=== PATIENT | female | born 1975 | race African-American/Black ===

== ENCOUNTER 2016-06-23 13:07 | Emergency (ER) | payer OTHER ==
[~2016-06-23] VITALS: Wt 60.0 kg
[2016-06-23 16:09] LABS: URINE BLOOD (Dip) POC Negative (NEGATIVE)
[2016-06-23] MEDS ORDERED: PHEN-537 PO (17:07)
[2016-06-23] MEDS ORDERED: NITR-58 PO (17:07)
[2016-06-23] MEDS ORDERED: [UNRECOGNIZED DRUG - CODE] TP (17:22)
--- NOTE | 2016-06-23 17:36 | ERD ---
ER Documentation Chief Complaint Date/Time DATE: 06/23/16 TIME: 17:31 Chief Complaint intermittent dysuria for months with period of scalp itching HPI This is a 41-year-old female presenting to the emergency department complaining of on and off painful urination for the past few days. She denies any fevers, pelvic pain, hematuria, flank pain. Patient also states that she has had intermittent itchiness of the scalp that comes and goes, she states she feels like parasites come out and when they get angry they attack her ROS All systems reviewed and are negative except as per history of present illness. Medications Home Meds Active Scripts Piperonyl Butoxide Technical (Lice Killing Shampoo) 118 Ml Shampoo, 118 ML TP ONCE, #1 Prov:HAL GUERRERO PA-C 06/23/16 Phenazopyridine Hcl* (Pyridium*) 100 Mg Tab, 100 MG PO TID Y for URINARY PAIN, # 8 TAB Prov:HAL GUERRERO PA-C 06/23/16 Nitrofurantoin Monohyd Macrocr* (Macrobid*) 100 Mg Capsr, 100 MG PO BID for 7 Days, CAP Prov:HAL GUERRERO PA-C 06/23/16 Reported Medications [None] No Conflict Check 10/06/12 Allergies Allergies: Coded Allergies: No Known Allergy (Unverified , 05/09/12) PMhx/Soc History of Surgery: Yes (left elbow sx, left breast mass,cervical CA) Anesthesia Reaction: No Hx Neurological Disorder: No Hx Respiratory Disorders: No Hx Cardiac Disorders: No (WPW) Hx Psychiatric Problems: No Hx Miscellaneous Medical Probl: No Hx Alcohol Use: No Hx Substance Use: No Hx Tobacco Use: Yes Smoking Status: Current every day smoker Physical Exam Vitals Vital Signs Date Time Temp Pulse Resp B/P Pulse Ox O2 Delivery O2 Flow Rate FiO2 06/23/16 13:24 98.8 100 21 103/66 100 Physical Exam General: well-developed/well-nourished, in no apparent distress, non-toxic appearing HENT: NC/AT Eyes: Conjunctiva normal Neck: Supple Pulm: CTA bilaterally, normal breathing CV: Normal S1S2 GI: Soft, non-distended, normal bowel sounds, mild TTP on suprapubic region Back: No midline tenderness, no masses, No CVAT Ext: No clubbing, cyanosis, or edema Neuro: Alert and orientated Skin: intact, normal turgor Psych: Normal mood and mentation Results 24 hrs Laboratory Tests Test 06/23/16 16:08 Bedside Urine pH (LAB) 7.0 Bedside Urine Protein (LAB) Negative Bedside Urine Glucose (UA) Negative Bedside Urine Ketones (LAB) Negative Bedside Urine Blood Negative Bedside Urine Nitrite (LAB) Positive Bedside Urine Leukocyte Esterase (L 1+ Procedures/MDM This is a 41-year-old female presenting to the emergency room complaining of symptoms of dysuria which is likely due to urinary tract infection. A urine dipstick was done in the ED and showed positive nitrite and leukocyte esterase. Patient was given prescription for Macrobid. I have a low suspicion for nephrolithiasis, para pyelonephritis. Patient appears well with stable vital signs. In addition patient states that she feels as if she has parasites on her scalp that come and go for the past few months and they attack or when he gets angry. On examination I have not seen any evidence of any lice, lesions or signs of excoriations. A prescription for pediculosis was provided. Discussed with her to return to the ER for any worsening signs or symptoms otherwise follow-up with the primary care physician. Patient understands and agrees with plan Departure Diagnosis: Primary Impression: UTI (urinary tract infection) Condition: Stable Patient Instructions: Understanding Urinary Tract Infections (UTIs) Additional Instructions: FOLLOW UP WITH YOUR PRIMARY CARE PHYSICIAN TOMORROW.Return to this facility if you are not improving as expected. Take all medicines as directed. Return to this facility if you are not improving as expected. HAL GUERRERO PA-C Jun 23, 2016 17:35
== END 2016-06-23 17:25 | disposition left against medical advice (07) ==
LOC: FTE 13:07
DX: N39.0 Urinary tract infection, site not specified (principal); F17.210 Nicotine dependence, cigarettes, uncomplicated; Z85.41 Personal history of malignant neoplasm of cervix uteri
CPT/HCPCS: 81003; 87591; 99283

== ENCOUNTER 2017-01-20 16:37 | Emergency (ER) | payer OTHER ==
[~2017-01-20] VITALS: Ht 170.2 cm; Wt 52.5 kg
[~2017-01-20 16:37] MED LIST: NITR-58 PO; PHEN-537 PO; [UNRECOGNIZED DRUG - CODE] TP
[2017-01-20 16:40] VITALS: Ht 170.2 cm; Wt 52.5 kg
--- NOTE | 2017-01-20 19:50 | ERD ---
ER Documentation Chief Complaint Chief Complaint back pain x 4 months, frequent hx uti HPI This 41-year-old female reports left sided flank pain, and pelvic pain, pt reports that she is living on the streets, has frequent UTI ROS All systems reviewed and are negative except as per history of present illness. Medications Home Meds Active Scripts Piperonyl Butoxide Technical (Lice Killing Shampoo) 118 Ml Shampoo, 118 ML TP ONCE, #1 Prov:HAL GUERRERO PA-C 06/23/16 Phenazopyridine Hcl* (Pyridium*) 100 Mg Tab, 100 MG PO TID Y for URINARY PAIN, # 8 TAB Prov:HAL GUERRERO PA-C 06/23/16 Nitrofurantoin Monohyd Macrocr* (Macrobid*) 100 Mg Capsr, 100 MG PO BID for 7 Days, CAP Prov:HAL GUERRERO PA-C 06/23/16 Reported Medications [None] No Conflict Check 10/06/12 Allergies Allergies: Coded Allergies: No Known Allergy (Unverified , 05/09/12) PMhx/Soc History of Surgery: Yes (left elbow sx, left breast mass,cervical CA) Anesthesia Reaction: No Hx Neurological Disorder: No Hx Respiratory Disorders: No Hx Cardiac Disorders: No (WPW) Hx Psychiatric Problems: No Hx Miscellaneous Medical Probl: Yes (chronic uti) Hx Alcohol Use: No Hx Substance Use: No Hx Tobacco Use: Yes Smoking Status: Current every day smoker Physical Exam Vitals Vital Signs Date Time Temp Pulse Resp B/P Pulse Ox O2 Delivery O2 Flow Rate FiO2 01/20/17 16:40 98.6 94 18 113/65 99 Vitals stable, triage notes reviewed Physical Exam Const: [] Head: Atraumatic Eyes: Normal Conjunctiva ENT: Normal External Ears, Nose and Mouth. Neck: Full range of motion..~ No meningismus. Resp: Clear to auscultation bilaterally Cardio: Regular rate and rhythm, no murmurs Abd: Soft, non tender, non distended. Normal bowel sounds Skin: No petechiae or rashes Back: No midline or flank tenderness Ext: No cyanosis, or edema Neur: Awake and alert Psych: Normal Mood and Affect Results 24 hrs Laboratory Tests Test 01/20/17 19:39 Bedside Urine pH (LAB) 6.0 Bedside Urine Protein (LAB) 1+ Bedside Urine Glucose (UA) Negative Bedside Urine Ketones (LAB) Negative Bedside Urine Blood Negative Bedside Urine Nitrite (LAB) Positive Bedside Urine Leukocyte Esterase (L Negative Procedures/MDM This 41-year-old female presents to emergency department for evaluation of dysuria, flank pain bilaterally bit worse on left side than right side. History of frequent urinary tract infections last seen and treated with Macrobid on 06/23/16. Patient reports that she is homeless, lives on the street , it is difficult to have clean bathrooms, she says she uses baby wipes for cleanliness and that she is sexually active, emergency room course includes history and physical exam, urinalysis positive for leukocytosis, nitrates, urine negative for evidence of plan to treat patient with Macrobid, Pyridium, instructed to return to emergency department if symptoms fail to improve as anticipated, follow-up in a clinic, Patient is stable with no new complaints during ER course, clinically there is no current evidence to suggest meningitis, sepsis, acute abdomen, no nephritis, appendicitis, cholecystitis, pancreatitis SBO, ovarian torsion or any other emergent condition appearing to require further evaluation or hospitalization. I feel the patient is stable for discharge at this time. I have discussed results, examination findings, the treatment plan with the patient and family present prior to discharge. Indications for emergent reevaluation, side effects of medication were also discussed. All questions were answered. Patient verbalizes understanding and agrees with plan of care. Departure Diagnosis: Primary Impression: UTI (urinary tract infection) Urinary tract infection type: acute cystitis Hematuria presence: with hematuria Qualified Code: N30.01 - Acute cystitis with hematuria Condition: Good Patient Instructions: Understanding Urinary Tract Infections (UTIs) Referrals: [facility] Additional Instructions: Thank you for for coming to the [facility] for your care today. Please ask your nurse or provider if you have questions about your care today and do not leave until all your questions have been answered. Please use any medications given as directed and follow-up with your doctor (or the doctor you were referred to) in the next 2-3 days. If you do not have a primary care doctor you may follow up at the [facility] - [place], [place] (listed below). You may also use motrin and tylenol as needed for fever and/or pain unless instructed otherwise by your provider or nurse. Indications for more urgent follow-up have been discussed, but you may return to the Emergency Department at ANY time for any worrisome or worsening symptoms. If you have abdominal pain, please know that no test or exam you received is perfect and you should follow up within 8 hours for continued pain. If you had any imaging studies today, such as an X-Ray or CT Scan, these studies will be reviewed later by a radiologist. You will be called if there are important findings that were not identified today, so make sure the contact information you provided at registration is correct. If you received any narcotic pain control medicine today, such as Vicodin, Morphine or Dilaudid, your coordination and judgment may be affected for a number of hours. Please do not drive or operate heavy machinery, and you may want someone to assist you at home. If you were given a prescription for narcotic medication, be aware that it is very addictive- use sparingly and only if necessary. YOSELYN BALLESTEROS Jan 20, 2017 19:50
[2017-01-20] MEDS ORDERED: PHEN-538 PO (21:12)
[2017-01-20] MEDS ORDERED: NITR-58 PO (21:12)
== END 2017-01-20 21:38 | disposition left against medical advice (07) ==
LOC: FTE 16:37
DX: N30.01 Acute cystitis with hematuria (principal); F17.210 Nicotine dependence, cigarettes, uncomplicated; R10.2 Pelvic and perineal pain
CPT/HCPCS: 81003; Z7502; 99283

== ENCOUNTER 2017-03-02 23:09 | Inpatient (IN) | payer OTHER ==
[~2017-03-02] VITALS: Ht 170.2 cm; Wt 52.2 kg
[~2017-03-02 23:09] MED LIST changes: +PHEN-538 PO
[2017-03-03 03:16] VITALS: Ht 170.2 cm; Wt 52.2 kg
[2017-03-03 03:23] VITALS: BP 101/61; PULSE 85; RESP 18
[2017-03-03] MEDS ORDERED: morphine 2 MG INJ IV PRN (03:30)
[2017-03-03] MEDS: DEXTROSE 5%-0.45% NACL 1,000 ML IV SCH ×3 (04:03→21:53)
[2017-03-03 05:54] LABS: BASOPHILS % 0.4 % (0.0-2.0); EOSINOPHILS # 0.3 10^3/ul (0.0-0.5); EOSINOPHILS % 3.6 % (0.0-7.0); HEMATOCRIT 32.9 % (37.0-47.0); HEMOGLOBIN 11.4 g/dl (12.0-16.0); LYMPHOCYTES # 1.4 10^3/ul (0.8-2.9); LYMPHOCYTES % 18.3 % (15.0-51.0); MEAN CORPUSCULAR HEMOGLOBIN 29.8 pg (29.0-33.0); MEAN CORPUSCULAR HGB CONC 34.7 g/dl (32.0-37.0); MEAN CORPUSCULAR VOLUME 85.9 fl (82.0-101.0); MEAN PLATELET VOLUME 10.8 fl (7.4-10.4); MONOCYTE # 0.7 10^3/ul (0.3-0.9); MONOCYTES % 9.3 % (0.0-11.0); NEUTROPHIL # 5.1 10^3/ul (1.6-7.5); NEUTROPHILS % 67.9 % (39.0-77.0); PLATELET COUNT 301 10^3/UL (140-415); RED BLOOD COUNT 3.83 10^6/ul (4.20-5.40); WHITE BLOOD COUNT 7.5 10^3/ul (4.8-10.8)
[2017-03-03 06:20] LABS: ALBUMIN 2.9 g/dl (3.3-4.9); ALBUMIN/GLOBULIN RATIO 0.78; BILIRUBIN,INDIRECT 0.5 mg/dl (0-1.1); BILIRUBIN,TOTAL 0.5 mg/dl (0.2-1.3); CALCIUM 8.5 mg/dl (8.4-10.2); CREATININE 0.71 mg/dl (0.44-1.00); PHOSPHORUS 3.1 mg/dl (2.5-4.9); POTASSIUM 3.2 mmol/L (3.5-5.1); TOTAL PROTEIN 6.6 g/dl (6.1-8.1)
[2017-03-03 08:10] VITALS: BP 110/67; RESP 18
[2017-03-03] MEDS: ONDANSETRON 4 MG INJ IV PRN (09:18)
--- NOTE | 2017-03-03 09:22 | HP ---
Date/Time of Note Date/Time of Note DATE: 03/03/17 TIME: 09:19 Assessment/Plan VTE Prophylaxis VTE Prophylaxis Intervention: SCD's Assessment/Plan Assessment/Plan 1. Small bowel obstruction, per imaging from outside hospital -Keep n.p.o. with IV fluid -NG tube to low intermittent suction -order KUB and small bowel follow-through. CT with oral contrast as needed. -Pain medication and antiemetics as needed -Surgical evaluation 2. History of hypertension Continue antihypertensives adjustment as needed 3. 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 History of recurrent UTI -Check UA and urine culture 5. 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 Patient initially presented on outside hospital complaining of abdominal pain 5 days. Pain is diffuse with associated nonbloody nonbilious vomiting. Patient reported intermittent diarrhea last one being yesterday when she had 2 episodes of watery nonbloody diarrhea. At the outside hospital she was diagnosed with small bowel obstruction. She was evaluated by the on-call surgeon who determined that the patient was stable for transfer. She was transferred to [facility] for insurance reasons. PMH/Family/Social Social History Smoking Status: Current every day smoker Exam/Review of Systems Vital Signs Vitals Vital Signs Date Time Temp Pulse Resp B/P Pulse Ox O2 Delivery O2 Flow Rate FiO2 03/03/17 08:10 98.8 68 18 110/67 98 03/03/17 03:23 Room Air Intake and Output 03/02/17 03/02/17 03/03/17 15:00 23:00 07:00 Output Total 50 ml Balance -50 ml Exam Constitutional: other (Thinly built woman who is in some distress due to abdominal pain.) Head: atraumatic, normocephalic Eyes: EOMI, PERRL Respiratory: clear to auscultation, normal air movement Cardiovascular: regular rate and rhythm Gastrointestinal: soft, tender Extremities: normal pulses Labs Result Diagram: 03/03/17 0454 03/03/17 0454 Medications Medications Current Medications Ondansetron HCl (Zofran Inj) 4 mg Q6H PRN IV NAUSEA AND/OR VOMITING; Start 03/03/17 at 03:30 Morphine Sulfate 2 mg 2 mg Q4H PRN IV PAIN; Start 03/03/17 at 03:30 Dextrose/Sodium Chloride (D5-1/2ns) 1,000 ml @ 100 mls/hr Q10H IV Last administered on 03/03/17t 04:03; Admin Dose 100 MLS/HR; Start 03/03/17 at 03:30 PO SANTIAGO MD Mar 03, 2017 09:22
--- NOTE | 2017-03-03 10:23 | RADRPT ---
PROCEDURE: X-ray, Abdomen. CLINICAL INDICATION: Small bowel obstruction. TECHNIQUE: Abdominal x-ray, single view. COMPARISON: None. FINDINGS: Multiple loops of dilated small intestines are seen within the central abdomen with the largest loop s measuring 4.2 cm in greatest dimension. There is no evidence of free intra-abdominal air. An enter ic tube terminates within the body of the stomach. Skeletal structures are unremarkable. IMPRESSION: Multiple loops of dilated small intestines suggesting the presence of small bowel obstruction. Consi brayan follow up and further characterization with CT. RPTAT: AAQQ .Laura Ng MD, Date Time Electronically viewed and signed by .Laura Ng MD, on 03/03/2017 10:22 .T/
[2017-03-03 11:17] LABS: ADD UMIC YES; UR ASCORBIC ACID NEGATIVE (NEGATIVE); UR BILIRUBIN (Dip) NEGATIVE (NEGATIVE); UR BLOOD (Dip) NEGATIVE (NEGATIVE); UR CLARITY CLOUDY (CLEAR); UR COLOR YELLOW (YELLOW); UR GLUCOSE (Dip) NEGATIVE (NEGATIVE); UR KETONES (Dip) NEGATIVE (NEGATIVE); UR LEUKOCYTE ESTERASE (Dip) NEGATIVE Leu/ul (NEGATIVE); UR MUCUS FEW /HPF (NONE SEEN); UR NITRITE (Dip) NEGATIVE (NEGATIVE); UR RBC 1 /HPF (0-5); UR SQUAMOUS EPITHELIAL CELL FEW /HPF (FEW); UR TOTAL PROTEIN (Dip) 1+ mg/dl (NEGATIVE); UR UROBILINOGEN (Dip) 2+ mg/dL (NEGATIVE)
[2017-03-03] MEDS ORDERED: POTASSIUM CHLORIDE 20 MEQ in DEXTROSE 5% 100 ML IVPB SCH (12:30)
[2017-03-03] MEDS: morphine 2 MG INJ IV PRN ×3 (13:22→18:57)
[2017-03-03] MEDS ORDERED: DIATR MEGLU/DIATRIZOATE SODIUM 120 ML BTL ONE (13:43)
--- NOTE | 2017-03-03 15:22 | CONS ---
Date/Time of Note Date/Time of Note DATE: 03/03/17 TIME: 15:05 Assessment/Plan Assessment/Plan Chief Complaint/Hosp Course 1. ?SBO: reports having bm this morning -sbft -ngtube -npo 2. Abdominal pain: 2/ #1 vs. gastroenteritis vs. IBD vs. other -as above 3. Normocytic normochromic anemia: -monitor -transfuse as needed 4. Electrolyte imbalance -optimize lytes 5. UTI: -abx per sensitivity -frequent bladder emptying/cath care 6. Hypertension -medical management-bp optimization Thank you. Patient seen and examined in collaboration with Dr. Cheko Matson. Problems: Consultation Date/Type/Reason Admit Date/Time Mar 03, 2017 at 02:43 Date of Consultation: Mar 03, 2017 Type of Consultation: surgical Reason for Consultation sbo Referring Provider: ANU YAÑEZ Hx of Present Illness Vane Foote is a 41-year-old woman who presented to an outside hospital complaining of abdominal pain 5 days. Pain is diffuse with associated nausea and vomiting nonbloody emesis. Patient reported intermittent diarrhea last one being yesterday when she had 2 episodes of watery nonbloody diarrhea, with accompanying subjective fevers. No chills, congested cough, dysuria. abdominal imaging was concerning of small bowel obstruction. General surgery was asked to evaluate. 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 Past Surgical History Past Surgical Hx: no surgical history Family History Significant Family History: no pertinent family hx Social History Alcohol Use: none Smoking Status: Current every day smoker Exam/Review of Systems Vital Signs Vitals Vital Signs Date Time Temp Pulse Resp B/P Pulse Ox O2 Delivery O2 Flow Rate FiO2 03/03/17 08:10 98.8 68 18 110/67 98 03/03/17 03:23 Room Air Intake and Output 03/02/17 03/02/17 03/03/17 15:00 23:00 07:00 Output Total 50 ml Balance -50 ml Exam Constitutional: alert, frail, oriented Psych: anxiety Head: atraumatic, normocephalic Eyes: nl lids, nl sclera ENMT: nl nasal mucosa & septum, other (ngtube), No mucosa pink and moist (dry) Neck: non-tender, supple Respiratory: normal air movement, No labored breathing Cardiovascular: nl pulses, regular rate and rhythm Gastrointestinal: soft, tender (lower abdomen) Genitourinary - Female: nl adnexae, nl external genitalia Musculoskeletal: nl extremities to inspection, nl gait and stance Extremities: normal pulses Neurological: nl mental status, nl speech, nl strength Skin: nl turgor, rash or lesions Lymph: nl lymph nodes Results Result Diagram: 03/03/17 0454 03/03/17 0454 Results 24 hrs Laboratory Tests Test 03/03/17 04:54 03/03/17 10:40 White Blood Count 7.5 Red Blood Count 3.83 L Hemoglobin 11.4 L Hematocrit 32.9 L Mean Corpuscular Volume 85.9 Mean Corpuscular Hemoglobin 29.8 Mean Corpuscular Hemoglobin Concent 34.7 Red Cell Distribution Width 14.0 Platelet Count 301 Mean Platelet Volume 10.8 H Neutrophils % 67.9 Lymphocytes % 18.3 Monocytes % 9.3 Eosinophils % 3.6 Basophils % 0.4 Nucleated Red Blood Cells % 0.0 Neutrophils # 5.1 Lymphocytes # 1.4 Monocytes # 0.7 Eosinophils # 0.3 Basophils # 0.0 Nucleated Red Blood Cells # 0.0 Sodium Level 140 Potassium Level 3.2 L Chloride Level 103 Carbon Dioxide Level 28 Anion Gap 12 Blood Urea Nitrogen 18 Creatinine 0.71 Glucose Level 115 Calcium Level 8.5 Phosphorus Level 3.1 Magnesium Level 2.0 Total Bilirubin 0.5 Direct Bilirubin 0.00 Indirect Bilirubin 0.5 Aspartate Amino Transf (AST/SGOT) 13 L Alanine Aminotransferase (ALT/SGPT) 31 Alkaline Phosphatase 73 Total Protein 6.6 Albumin 2.9 L Globulin 3.70 H Albumin/Globulin Ratio 0.78 Urine Color YELLOW Urine Clarity CLOUDY A Urine pH 6.0 Urine Specific Capac 1.030 Urine Ketones NEGATIVE Urine Nitrite NEGATIVE Urine Bilirubin NEGATIVE Urine Urobilinogen 2+ H Urine Leukocyte Esterase NEGATIVE Urine Microscopic RBC 1 Urine Microscopic WBC 11 H Urine Squamous Epithelial Cells FEW Urine Mucus FEW A Urine Hemoglobin NEGATIVE Urine Glucose NEGATIVE Urine Total Protein 1+ H Medications Medications Current Medications Ondansetron HCl 4 mg 4 mg Q6H PRN IV NAUSEA AND/OR VOMITING Last administered on 03/03/17 09:18; Admin Dose 4 MG; Start 03/03/17 at 03:30 Dextrose/Sodium Chloride (D5-1/2ns) 1,000 ml @ 100 mls/hr Q10H IV Last administered on 03/03/17 04:03; Admin Dose 100 MLS/HR; Start 03/03/17 at 03:30 Morphine Sulfate (morphine) 2 mg Q3 PRN IV PAIN Last administered on 03/03/17 13:22; Admin Dose 2 MG; Start 03/03/17 at 12:00 MAGDALENA DOHERTY NP Mar 03, 2017 15:15
[2017-03-03 19:20] VITALS: BP 113/67; RESP 16
--- NOTE | 2017-03-03 22:30 | RADRPT ---
PROCEDURE: XR small bowel series CLINICAL INDICATION: Small bowel obstruction TECHNIQUE: [employer] Consultant radiograph was performed. Following this, 240 cc of Gastrografin was injected into the nasogastric tube. and subsequent overhead radiographs were performed. Fluoro time: 0.0 minutes Number of images/sequences: 9 COMPARISON: Abdominal radiograph of 03/03/2017 FINDINGS: The ropeman radiographs demonstrates nasogastric tube in the upper stomach with the side port near the gastroesophageal junction and dilated small bowel loops measuring up to 5.7 cm diameter and air in nondilated small and large bowel as well. Injected contrast is seen in the unremarkable distal esoph dave, stomach, duodenum, and nondilated and dilated small bowel loops measuring up to approximately 4.3 cm with contrast in the right colon as early as 2 hours post injection consistent with partial s mall bowel obstruction. Contrast is seen in the colon to at least the level of the splenic flexure b y 8 hours post injection.. Contrast is apparent in the bladder as early as 2 hours postinjection. Th is could be secondary to absorbed contrast. IMPRESSION: Findings compatible with partial small bowel obstruction as noted above. Nasogastric tube is in the distal esophagus at the end of the examination and should be advanced at least 4 cm. Please see davide barrera RPTAT: HJES .Chato Ramírez MD, Date Time Electronically viewed and signed by .Chato Ramírez MD, MD on 03/03/2017 22:30 .S/
[2017-03-04 01:35] VITALS: BP 107/61; RESP 18
[2017-03-04 06:01] LABS: BASOPHILS % 0.3 % (0.0-2.0); EOSINOPHILS # 0.2 10^3/ul (0.0-0.5); EOSINOPHILS % 2.9 % (0.0-7.0); HEMATOCRIT 33.7 % (37.0-47.0); HEMOGLOBIN 11.2 g/dl (12.0-16.0); LYMPHOCYTES % 15.8 % (15.0-51.0); MEAN CORPUSCULAR HEMOGLOBIN 29.1 pg (29.0-33.0); MEAN CORPUSCULAR HGB CONC 33.2 g/dl (32.0-37.0); MEAN CORPUSCULAR VOLUME 87.5 fl (82.0-101.0); MEAN PLATELET VOLUME 10.7 fl (7.4-10.4); MONOCYTE # 0.7 10^3/ul (0.3-0.9); MONOCYTES % 10.8 % (0.0-11.0); NEUTROPHIL # 4.3 10^3/ul (1.6-7.5); NEUTROPHILS % 69.9 % (39.0-77.0); PLATELET COUNT 300 10^3/UL (140-415); RED BLOOD COUNT 3.85 10^6/ul (4.20-5.40); RED CELL DISTRIBUTION WIDTH 14.3 % (11.5-14.5); WHITE BLOOD COUNT 6.2 10^3/ul (4.8-10.8)
[2017-03-04 07:23] LABS: CALCIUM 8.3 mg/dl (8.4-10.2); CREATININE 0.69 mg/dl (0.44-1.00); POTASSIUM 3.3 mmol/L (3.5-5.1)
[2017-03-04 08:14] VITALS: BP 107/68; PULSE 80; RESP 14
[2017-03-04 08:24] VITALS: BP 117/66; RESP 19
[2017-03-04] MEDS: ONDANSETRON 4 MG INJ IV PRN (08:52)
[2017-03-04] MEDS: DEXTROSE 5%-0.45% NACL 1,000 ML IV SCH (08:52)
[2017-03-04] MEDS: morphine 2 MG INJ IV PRN ×2 (08:59→16:58)
--- NOTE | 2017-03-04 10:55 | PN ---
Date/Time of Note Date/Time of Note DATE: 03/04/17 TIME: 10:35 Assessment/Plan Lines/Catheters IV C[facility]ter Type (from [facility]): Peripheral IV Assessment/Plan Chief Complaint/Hosp Course 1. ?SBO: reports having bm this morning; SBFT with partial obstruction, now with diarrhea s/p sbft: likely resolved -ngtube -npo for now until seen by gi -no surgical intervention necessary at this time 2. Abdominal pain with Dark brown creamy output: 04/29 #1 vs. gastroenteritis vs. IBD vs. other: -recommend GI consult -?scope per gi 3. Normocytic normochromic anemia: -monitor -transfuse as needed 4. Electrolyte imbalance -optimize lytes 5. UTI: -abx per sensitivity -frequent bladder emptying/cath care 6. Hypertension -medical management-bp optimization 7. Cachexia with likely malnutrition -recommend nutrition consult Thank you. Patient seen and examined in collaboration with Dr. Cheko Matson. Problems: Subjective 24 Hr Interval Summary SBFT noted with partial sbo. Now reports diarrhea, + flatus. Abdomen much softer. Abdominal tenderness LLQ. NGT with dark brown creamy output. No fevers, chills, sob, congested cough, cp, palpitations, bacon, dizziness, n/v/d/dysuria. Exam/Review of Systems Vital Signs Vitals Vital Signs Date Time Temp Pulse Resp B/P Pulse Ox O2 Delivery O2 Flow Rate FiO2 03/04/17 08:24 98.0 83 19 117/66 98 03/04/17 08:14 Room Air Intake and Output 03/03/17 03/03/17 03/04/17 15:00 23:00 07:00 Intake Total 300 ml 60 ml 850 ml Output Total 1650 ml Balance 300 ml 60 ml -800 ml Exam Free Text/Dictation Constitutional: alert, frail, oriented Psych: anxiety Head: atraumatic, normocephalic Eyes: nl lids, nl sclera ENMT: nl nasal mucosa & septum, other (ngtube), No mucosa pink and moist (dry) Neck: non-tender, supple Respiratory: normal air movement, No labored breathing Cardiovascular: nl pulses, regular rate and rhythm Gastrointestinal: soft, tender (left lower abdomen) Genitourinary - Female: nl adnexae, nl external genitalia Musculoskeletal: nl extremities to inspection, nl gait and stance Extremities: normal pulses Neurological: nl mental status, nl speech, nl strength Skin: nl turgor, rash or lesions Lymph: nl lymph nodes Results Result Diagram: 03/04/17 0439 03/04/17 0439 MAGDALENA DOHERTY NP Mar 04, 2017 10:48
--- NOTE | 2017-03-04 15:42 | PN ---
Date/Time of Note Date/Time of Note DATE: 03/04/17 TIME: 15:34 Assessment/Plan VTE Prophylaxis VTE Prophylaxis Intervention: SCD's Lines/Catheters IV Catheter Type (from Nrs): Peripheral IV Urinary Cath still in place: No Assessment/Plan Assessment/Plan 1. Partial small bowel obstruction, NPO with NG tube with suction, CT scan 2. Hypertension, stable 3. UTI, on rocephin 4. 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 Subjective 24 Hr Interval Summary Free Text/Dictation abdominal pain Exam/Review of Systems Vital Signs Vitals Vital Signs Date Time Temp Pulse Resp B/P Pulse Ox O2 Delivery O2 Flow Rate FiO2 03/04/17 08:24 98.0 83 19 117/66 98 03/04/17 08:14 Room Air Intake and Output 03/03/17 03/03/17 03/04/17 15:00 23:00 07:00 Intake Total 300 ml 60 ml 850 ml Output Total 1650 ml Balance 300 ml 60 ml -800 ml Exam Constitutional: alert, oriented Psych: nl mood/affect, no complaints Head: atraumatic, normocephalic Eyes: EOMI, nl conjunctiva, nl lids ENMT: nl external ears & nose, nl lips & teeth, nl nasal mucosa & septum Neck: non-tender, supple Respiratory: clear to auscultation, normal air movement, No congested cough, No crackles/rales, No diminished breath sounds, No intercostal retraction, No labored breathing, No other, No respirations, No tactile fremitus, No wheezing Cardiovascular: nl pulses, regular rate and rhythm, No S3, No S4, No bruits, No diastolic murmur, No edema, No gallop, No irregular rhythm, No jugular venous distention (JVD), No murmurs/extra sounds, No other, No rub, No systolic murmur Gastrointestinal: distended, tender (diffuse) Musculoskeletal: nl extremities to inspection Extremities: normal pulses, No calf tenderness, No clubbing, No cyanosis, No edema, No other, No palpable cord, No pitting pedal edema, No tenderness 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[employer] PHILOSOPHY II-XII intact, nl mental status, nl speech, nl strength Skin: nl turgor Lymph: nl lymph nodes Results Result Diagram: 03/04/17 0439 03/04/17 0439 Results 24 hrs Laboratory Tests Test 03/04/17 04:39 White Blood Count 6.2 Red Blood Count 3.85 L Hemoglobin 11.2 L Hematocrit 33.7 L Mean Corpuscular Volume 87.5 Mean Corpuscular Hemoglobin 29.1 Mean Corpuscular Hemoglobin Concent 33.2 Red Cell Distribution Width 14.3 Platelet Count 300 Mean Platelet Volume 10.7 H Neutrophils % 69.9 Lymphocytes % 15.8 Monocytes % 10.8 Eosinophils % 2.9 Basophils % 0.3 Nucleated Red Blood Cells % 0.0 Neutrophils # 4.3 Lymphocytes # 1.0 Monocytes # 0.7 Eosinophils # 0.2 Basophils # 0.0 Nucleated Red Blood Cells # 0.0 Sodium Level 142 Potassium Level 3.3 L Chloride Level 105 Carbon Dioxide Level 29 Anion Gap 11 Blood Urea Nitrogen 12 Creatinine 0.69 Glucose Level 116 Calcium Level 8.3 L Medications Medications Current Medications Ondansetron HCl 4 mg 4 mg Q6H PRN IV NAUSEA AND/OR VOMITING Last administered on 03/04/17 08:52; Admin Dose 4 MG; Start 03/03/17 at 03:30 Dextrose/Sodium Chloride (D5-1/2ns) 1,000 ml @ 100 mls/hr Q10H IV Last administered on 03/04/17 08:52; Admin Dose 100 MLS/HR; Start 03/03/17 at 03:30 Morphine Sulfate (morphine) 2 mg Q3 PRN IV PAIN Last administered on 03/04/17 08:59; Admin Dose 2 MG; Start 03/03/17 at 12:00 LUC BAUMANN MD Mar 04, 2017 15:42
[2017-03-04] MEDS ORDERED: CEFTRIAXONE 1 GM/50 ML (PMX) 50 ML IVPB SCH (16:00)
[2017-03-04] MEDS: D5W-0.45 NACL + KCL 20 MEQ 1,000 ML IV SCH (16:56)
[2017-03-04] MEDS ORDERED: POTASSIUM CHLORIDE 20 MEQ in DEXTROSE 5% 100 ML IVPB ONE (17:00)
[2017-03-04 19:15] VITALS: BP 106/64; RESP 18
[2017-03-04] MEDS ORDERED: IOHEXOL 14.3 MG(I)/ML (ADULT) BTL PO ONE (23:30)
[2017-03-05 02:05] VITALS: BP 116/73; RESP 20
[2017-03-05] MEDS: D5W-0.45 NACL + KCL 20 MEQ 1,000 ML IV SCH ×5 (02:30→22:30)
[2017-03-05] MEDS: PANTOPRAZOLE 40 MG INJ IV SCH (05:10)
[2017-03-05 05:38] LABS: BASOPHILS % 0.3 % (0.0-2.0); EOSINOPHILS # 0.3 10^3/ul (0.0-0.5); EOSINOPHILS % 4.5 % (0.0-7.0); HEMOGLOBIN 10.9 g/dl (12.0-16.0); LYMPHOCYTES # 1.9 10^3/ul (0.8-2.9); LYMPHOCYTES % 29.3 % (15.0-51.0); MEAN CORPUSCULAR HEMOGLOBIN 29.1 pg (29.0-33.0); MEAN CORPUSCULAR VOLUME 88.2 fl (82.0-101.0); MEAN PLATELET VOLUME 10.5 fl (7.4-10.4); MONOCYTE # 0.8 10^3/ul (0.3-0.9); MONOCYTES % 12.2 % (0.0-11.0); NEUTROPHIL # 3.5 10^3/ul (1.6-7.5); NEUTROPHILS % 53.4 % (39.0-77.0); PLATELET COUNT 299 10^3/UL (140-415); RED BLOOD COUNT 3.74 10^6/ul (4.20-5.40); RED CELL DISTRIBUTION WIDTH 14.1 % (11.5-14.5); WHITE BLOOD COUNT 6.5 10^3/ul (4.8-10.8)
[2017-03-05 05:58] LABS: CALCIUM 8.5 mg/dl (8.4-10.2); CREATININE 0.7 mg/dl (0.44-1.00); POTASSIUM 3.8 mmol/L (3.5-5.1)
[2017-03-05 08:34] VITALS: BP 118/53; RESP 18
--- NOTE | 2017-03-05 10:23 | PN ---
Date/Time of Note Date/Time of Note DATE: 03/05/17 TIME: 10:23 Assessment/Plan Lines/Catheters IV Catheter Type (from [facility]): Peripheral IV Lorenz in Place (from [facility]): No Assessment/Plan Chief Complaint/Hosp Course 1. ?SBO: reports having bm this morning; SBFT with partial obstruction, now with diarrhea s/p sbft: likely resolved -ngtube -npo for now until seen by gi -no surgical intervention necessary at this time 2. Abdominal pain with Dark brown creamy output: 04/29 #1 vs. gastroenteritis vs. IBD vs. other: -recommend GI consult -?scope per gi 3. Normocytic normochromic anemia: -monitor -transfuse as needed 4. Electrolyte imbalance -optimize lytes 5. UTI: -abx per sensitivity -frequent bladder emptying/cath care 6. Hypertension -medical management-bp optimization 7. Cachexia with likely malnutrition -recommend nutrition consult Thank you. Patient seen and examined in collaboration with Dr. Cheko Matson. Problems: Subjective 24 Hr Interval Summary NG tube reinserted. Pending repeat abd imaging. Still with abdominal bloating. No fevers, chills, sob, congested cough, cp, palpitations, bacon, dizziness, n/v/d/ dysuria. Exam/Review of Systems Vital Signs Vitals Vital Signs Date Time Temp Pulse Resp B/P Pulse Ox O2 Delivery O2 Flow Rate FiO2 03/06/17 14:30 98.0 75 18 98/58 100 03/04/17 08:14 Room Air Intake and Output 03/05/17 03/05/17 03/06/17 15:00 23:00 07:00 Intake Total 1126 ml 50 ml Output Total 1300 ml 700 ml Balance -174 ml -650 ml Exam Free Text/Dictation Constitutional: alert, frail, oriented Psych: anxiety Head: atraumatic, normocephalic Eyes: nl lids, nl sclera ENMT: nl nasal mucosa & septum, other (ngtube), No mucosa pink and moist (dry) Neck: non-tender, supple Respiratory: normal air movement, No labored breathing Cardiovascular: nl pulses, regular rate and rhythm Gastrointestinal: soft, tender (left lower abdomen) Genitourinary - Female: nl adnexae, nl external genitalia Musculoskeletal: nl extremities to inspection, nl gait and stance Extremities: normal pulses Neurological: nl mental status, nl speech, nl strength Skin: nl turgor, rash or lesions Lymph: nl lymph nodes Results Result Diagram: 03/06/17 0444 03/06/17 0444 MAGDALENA DOHERTY NP Mar 05, 2017 10:23
--- NOTE | 2017-03-05 11:07 | RADRPT ---
PROCEDURE: CT abdomen and pelvis without contrast. CLINICAL INDICATION: Bowel obstruction TECHNIQUE: CT scan of the abdomen and pelvis without intravenous contrast was performed and is rec onstructed at 2.5 mm contiguous axial intervals from the dome of the diaphragm to the inferior pubic rami.. The patient was scanned with oral contrast. Sagittal and coronal reformatted images were o btained from the axial source images. The calculated radiation dose measures of 302 mGy centimeters. The CTDI measures 6 mGy. Individualized dose optimization technique was used for the performance of this exam. This included 1. Automated exposure control. 2. Adjustment of the mA and / or kV according to the patient's size. 3. Use of iterative reconstructed technique. COMPARISON: Small bowel follow-through March 03 FINDINGS: The lung bases are clear of any infiltrate or nodule. No effusion is seen. The liver is of normal size, contour and attenuation with no mass or ductal dilatation. No gallston es are visualized. No splenic, adrenal or pancreatic abnormalities present. Kidneys are of normal size and contour. No hydronephrosis, calculus or masses seen. Ureters are o f normal course and caliber with no stone. No bladder mass or stone is present. Uterus appears norm al. No adnexal mass is present. There is no aneurysm. No adenopathy is present. No bowel mass or obstruction is present. There is diffuse moderate distension of small bowel loops . No transition is visualized. Contrast is seen throughout the colon and rectum. The appendix is nor mal. No phlegmon, ascites or pneumoperitoneum is visualized. The osseous structures are intact. IMPRESSION: Contrast throughout the colon and rectum. Diffuse small bowel dilatation without mural thickening or nodularity. No mass visualized. Question resolving ileus or resolving small bowel obstruction. .Kirk Lopez MD, MD Date Time Electronically viewed and signed by .Kirk Lopez MD, MD on 03/05/2017 11:07 .A/
[2017-03-05] MEDS ORDERED: MAGNESIUM SULFATE 3 GM in DEXTROSE 5% 100 ML IVPB ONE (12:00)
--- NOTE | 2017-03-05 12:38 | CONS ---
Date/Time of Note Date/Time of Note DATE: 03/05/17 TIME: 11:59 Assessment/Plan Assessment/Plan Chief Complaint/Hosp Course Summary Assessment and Plan: Assessment: Abdominal pain r/o gastroenteritis vs. IBD vs. other: SBO/resolving Normocytic normochromic anemia Recurrent UTI WPW- s/p ablation in her 20's Hypertension Dyslipidemia Cachexia Plan: If ok with surgery team will d/c NG-tube and start clear liquid diet Colonoscopy on Tuesday Plan for NPO after midnight Tuesday night Endoscopy - risks/benefits/alternatives/indications of procedure and sedation/ anesthesia discussed with patient who states understanding and gives informed consent to proceed. PARQ held and questions were answered. Patient seen in collaboration with Dr. Jennings Problems: Consultation Date/Type/Reason Admit Date/Time Mar 03, 2017 at 02:43 Date of Consultation: Mar 05, 2017 Type of Consultation: GI Reason for Consultation Abdominal pain anemia SB inflammation Hx of Present Illness This is a 41-year-old homeless female with past medical history of hypertension , dyslipidemia, recurrent UTI, WPW s/p ablation in her 20s, compound fx to left arm with surgical repair, and left breast mass status post biopsy in 2012. Pt was admitted to the hospital for abdominal pain x5 days described as a cramping sensation rated 9 out of 10 on a pain scale (now has improved), patient denies any aggravating or relieving factors. Patient also complaining of nausea, vomiting, and watery diarrhea she states she did not see the color of the diarrhea. Initial imaging compatible with partial small bowel obstruction, NG tube was placed. Follow-up imaging reveals resolving small bowel obstruction. GI has been asked to consult regarding abdominal pain and diarrhea. Patient states she is adopted and does not know past family history. She currently denies nausea, vomiting, hematemesis, hematochezia, dysphagia, odynophagia. She continues to have some abdominal pain, and loose stool. Due to living situation i.e. homelessness, he does not have a consistent means reliable options for food. She has never had an upper endoscopy or colonoscopy. Laboratory work reveals normochromic normocytic anemia. Will discuss with surgery for possibly DC NG tube and strength clear liquid diet. With current presentation and unknown family history, plan for colonoscopy Tuesday to rule out Crohn's disease versus microscopic colitis versus other etiology. Discussed plan with patient who is in agreement at this time. Eyes: no complaints ENT: no complaints Respiratory: no complaints Cardiovascular: no complaints Gastrointestinal: blood, constipation, decreased appetite, diarrhea, nausea, pain, vomiting Genitourinary: no complaints Musculoskeletal: no complaints Skin: no complaints Past Medical History Medical History: hypertension, urinary tract infection (Recurrent), other ( History of WPW status post ablation, dyslipidemia) Past Surgical History Past Surgical Hx: other (Surgical repair of left arm fracture, ablation, biopsy of left breast mass) Family History Significant Family History: other (Unknown family history) Social History Alcohol Use: none Smoking Status: Current every day smoker Drug Use: none Exam/Review of Systems Vital Signs Vitals Vital Signs Date Time Temp Pulse Resp B/P Pulse Ox O2 Delivery O2 Flow Rate FiO2 03/05/17 08:34 97.6 70 18 118/53 100 03/04/17 08:14 Room Air Intake and Output 03/04/17 03/04/17 03/05/17 15:00 23:00 07:00 Intake Total 900 ml 1120 ml Output Total 800 ml 1100 ml Balance 100 ml 20 ml Exam PHYSICAL EXAMINATION: GENERAL: Malnourished, alert & oriented x 3, in no acute distress SKIN: No lesions, no stigmata chronic liver disease, no evidence of bleeding diathesis LYMPHATIC: No palpable lymphadenopathy. HEAD: Normocephalic, atraumatic, no tenderness. EYES: Pupils equal reactive to light and accommodation, full extraocular movements, sclera clear, non-icteric, no discharge. EARS/NOSE AND THROAT: Ears normal, nose normal, oropharynx normal, oral membranes well hydrated without lesions. NECK: Supple, no masses, thyroid normal, CHEST: Inspection within normal limits. CARDIOVASCULAR: Heart: Regular rate and rhythm, no murmurs, gallops or rubs. RESPIRATORY: Lungs clear to auscultation and percussion, no wheezing, no rubs GASTROINTESTINAL AND LIVER: Abdomen: Soft, tenderness, non-distended, no hernias , no masses, no organomegaly, no ascites, no guarding, no rebound tenderness, normoactive bowel sounds. Rectal: Deferred. GENITOURINARY: Female genitalia within normal limits. EXTREMITIES: No cyanosis, clubbing or edema. Results Result Diagram: 03/05/17 0450 03/05/17 0450 Results 24 hrs Laboratory Tests Test 03/05/17 04:50 03/05/17 08:35 White Blood Count 6.5 Red Blood Count 3.74 L Hemoglobin 10.9 L Hematocrit 33.0 L Mean Corpuscular Volume 88.2 Mean Corpuscular Hemoglobin 29.1 Mean Corpuscular Hemoglobin Concent 33.0 Red Cell Distribution Width 14.1 Platelet Count 299 Mean Platelet Volume 10.5 H Neutrophils % 53.4 Lymphocytes % 29.3 Monocytes % 12.2 H Eosinophils % 4.5 Basophils % 0.3 Nucleated Red Blood Cells % 0.0 Neutrophils # 3.5 Lymphocytes # 1.9 Monocytes # 0.8 Eosinophils # 0.3 Basophils # 0.0 Nucleated Red Blood Cells # 0.0 Sodium Level 139 Potassium Level 3.8 Chloride Level 102 Carbon Dioxide Level 32 H Anion Gap 9 Blood Urea Nitrogen 4 L Creatinine 0.70 Glucose Level 107 Calcium Level 8.5 Magnesium Level 1.5 L Urine Test NEGATIVE Medications Medications Current Medications Ondansetron HCl (Zofran Inj) 4 mg Q6H PRN IV NAUSEA AND/OR VOMITING Last administered on 03/04/17 08:52; Admin Dose 4 MG; Start 03/03/17 at 03:30 Morphine Sulfate 2 mg 2 mg Q3 PRN IV PAIN Last administered on 03/04/17 16:58 ; Admin Dose 2 MG; Start 03/03/17 at 12:00 Potassium Chloride/Dextrose/ Sod Cl (D5-1/2ns + KCl 20 Meq) 1,000 ml @ 100 mls/ hr Q10H IV Last administered on 03/05/17 05:10; Admin Dose 100 MLS/HR; Start 03/04/17 at 16:30 Pantoprazole 40 mg 40 mg DAILY@06 IV Last administered on 03/05/17 05:10; Admin Dose 40 MG; Start 03/05/17 at 06:00 Magnesium Sulfate/ Dextrose (Magnesium Sulfate/D5W) 106 ml @ 35.333 mls/ hr ONCE ONCE IVPB ; Start 03/05/17 at 12:00; Stop 03/05/17 at 14:59 Copies To: CC: ESTELLA JENNINGS MD, VICTORIA Mar 05, 2017 12:23
[2017-03-05 14:46] VITALS: BP 110/61; RESP 20
--- NOTE | 2017-03-05 15:07 | PN ---
Date/Time of Note Date/Time of Note DATE: 03/05/17 TIME: 15:03 Assessment/Plan Lines/Catheters IV [facility] ([facility]): Peripheral IV Urinary Cath still in place: No Assessment/Plan Chief Complaint/Hosp Course Assessment and plan 1. SBO. Patient did have imaging consistent with SBO. Recent imaging did show possibly resolving SBO. DC NG tube per surgery team. Advance diet as tolerated. Plan for colonoscopy per GI. 2. History of WPW. No active issues at this time. Will monitor. 3. History of hypertension. Stable at present. Will provide with antihypertensives as needed. 4. Recurrent UTI. Urine culture did show E. coli. Continue antibiotics for now. Disposition plan: Continue with antibiotics. DC NG tube per surgery. Advance diet as tolerated. Plan for colonoscopy Discussed plan of care with Dr. Ochoa . Problems: Subjective 24 Hr Interval Summary Free Text/Dictation Still with some abdominal discomfort. Reportedly had some diarrhea. Exam/Review of Systems Vital Signs Vitals Vital Signs Date Time Temp Pulse Resp B/P Pulse Ox O2 Delivery O2 Flow Rate FiO2 03/05/17 14:46 97.7 79 20 110/61 100 03/04/17 08:14 Room Air Intake and Output 03/04/17 03/04/17 03/05/17 15:00 23:00 07:00 Intake Total 900 ml 1120 ml Output Total 800 ml 1100 ml Balance 100 ml 20 ml Exam Constitutional: alert, oriented Psych: no complaints Head: normocephalic ENMT: nl external ears & nose Neck: non-tender, supple Respiratory: clear to auscultation, normal air movement Cardiovascular: regular rate and rhythm Gastrointestinal: other (Nasogastric tube in place), soft 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, nl mental status, nl speech Skin: nl turgor Results Result Diagram: 03/05/17 0450 03/05/17 0450 Results 24 hrs Laboratory Tests Test 03/05/17 04:50 03/05/17 08:35 White Blood Count 6.5 Red Blood Count 3.74 L Hemoglobin 10.9 L Hematocrit 33.0 L Mean Corpuscular Volume 88.2 Mean Corpuscular Hemoglobin 29.1 Mean Corpuscular Hemoglobin Concent 33.0 Red Cell Distribution Width 14.1 Platelet Count 299 Mean Platelet Volume 10.5 H Neutrophils % 53.4 Lymphocytes % 29.3 Monocytes % 12.2 H Eosinophils % 4.5 Basophils % 0.3 Nucleated Red Blood Cells % 0.0 Neutrophils # 3.5 Lymphocytes # 1.9 Monocytes # 0.8 Eosinophils # 0.3 Basophils # 0.0 Nucleated Red Blood Cells # 0.0 Sodium Level 139 Potassium Level 3.8 Chloride Level 102 Carbon Dioxide Level 32 H Anion Gap 9 Blood Urea Nitrogen 4 L Creatinine 0.70 Glucose Level 107 Calcium Level 8.5 Magnesium Level 1.5 L Urine Test NEGATIVE Medications Medications Current Medications Ondansetron HCl (Zofran Inj) 4 mg Q6H PRN IV NAUSEA AND/OR VOMITING Last administered on 03/04/17 08:52; Admin Dose 4 MG; Start 03/03/17 at 03:30 Morphine Sulfate 2 mg 2 mg Q3 PRN IV PAIN Last administered on 03/04/17 16:58 ; Admin Dose 2 MG; Start 03/03/17 at 12:00 Potassium Chloride/Dextrose/ Sod Cl (D5-1/2ns + KCl 20 Meq) 1,000 ml @ 100 mls/ hr Q10H IV Last administered on 03/05/17 05:10; Admin Dose 100 MLS/HR; Start 03/04/17 at 16:30 Pantoprazole (Protonix Iv) 40 mg DAILY@06 IV Last administered on 03/05/17 05: 10; Admin Dose 40 MG; Start 03/05/17 at 06:00 ANU YAÑEZ Mar 05, 2017 15:07 ANU YAÑEZ Mar 05, 2017 15:07
[2017-03-05] MEDS: CIPROFLOXACIN 400MG/D5W 200 ML IVPB SCH ×2 (16:43→23:20)
[2017-03-05] MEDS: morphine 2 MG INJ IV PRN (17:57)
[2017-03-05 19:30] VITALS: BP 95/60; RESP 18
[2017-03-06] MEDS: PANTOPRAZOLE 40 MG INJ IV SCH (05:19)
[2017-03-06 05:24] LABS: HEMATOCRIT 31.3 % (37.0-47.0); HEMOGLOBIN 10.4 g/dl (12.0-16.0); MEAN CORPUSCULAR HEMOGLOBIN 29.3 pg (29.0-33.0); MEAN CORPUSCULAR HGB CONC 33.2 g/dl (32.0-37.0); MEAN CORPUSCULAR VOLUME 88.2 fl (82.0-101.0); MEAN PLATELET VOLUME 10.2 fl (7.4-10.4); PLATELET COUNT 321 10^3/UL (140-415); RED BLOOD COUNT 3.55 10^6/ul (4.20-5.40); RED CELL DISTRIBUTION WIDTH 14.2 % (11.5-14.5); WHITE BLOOD COUNT 5.3 10^3/ul (4.8-10.8)
[2017-03-06 05:28] LABS: POSITIVE DIFF @See below
[2017-03-06 06:21] LABS: ANION GAP 10 (8-16); CALCIUM 8.3 mg/dl (8.4-10.2); CARBON DIOXIDE 30 mmol/L (21-31); CHLORIDE 104 mmol/L (97-110); CREATININE 0.68 mg/dl (0.44-1.00); GLUCOSE 104 mg/dl (70-220); POTASSIUM 3.7 mmol/L (3.5-5.1); SODIUM 140 mmol/L (135-144)
[2017-03-06 06:28] LABS: BLOOD UREA NITROGEN < 2 mg/dl (7-20)
[2017-03-06 07:37] VITALS: BP 103/62; RESP 16
[2017-03-06 08:39] LABS: BASOPHILS % 0.4 % (0.0-2.0); EOSINOPHILS # 0.3 10^3/ul (0.0-0.5); EOSINOPHILS % 4.7 % (0.0-7.0); LYMPHOCYTES % 37.3 % (15.0-51.0); MONOCYTE # 0.5 10^3/ul (0.3-0.9); MONOCYTES % 9.4 % (0.0-11.0); NEUTROPHIL # 2.6 10^3/ul (1.6-7.5)
[2017-03-06] MEDS: CIPROFLOXACIN 400MG/D5W 200 ML IVPB SCH ×2 (08:53→20:05)
[2017-03-06] MEDS: D5W-0.45 NACL + KCL 20 MEQ 1,000 ML IV SCH ×2 (08:53→17:48)
[2017-03-06 10:04] LABS: EOSINOPHILS % (M) 6 % (0-7); ERYTHROBLAST% (NRBC) (M) 1 % (0-0); MONOCYTES % (M) 10 % (0-11); PLATELET ESTIMATE NORMAL; POIKILOCYTOSIS 1+ (0-0); REACTIVE LYMPHOCYTES% (M) 6 % (0-0)
[2017-03-06] MEDS: morphine 2 MG INJ IV PRN (11:08)
[2017-03-06] MEDS ORDERED: BISACODYL (EC) 5 MG TAB PO ONE (11:30)
--- NOTE | 2017-03-06 11:30 | PN ---
Date/Time of Note Date/Time of Note DATE: 03/06/17 TIME: 11:24 Assessment/Plan VTE Prophylaxis VTE Prophylaxis Intervention: SCD's Lines/Catheters IV [facility] Type (from [facility]): Peripheral IV Urinary Cath still in place: No Assessment/Plan Chief Complaint/Hosp Course Summary Assessment and Plan: Assessment: Abdominal pain r/o gastroenteritis vs. IBD vs. other: SBO/resolving Normocytic normochromic anemia Recurrent UTI WPW- s/p ablation in her 20's Hypertension Dyslipidemia Cachexia Plan: D/c NGT Start clear liquids today Colonoscopy on Tomorrow Endoscopy - risks/benefits/alternatives/indications of procedure and sedation/ anesthesia discussed with patient who states understanding and gives informed consent to proceed. PARQ held and questions were answered. Patient seen in collaboration with Dr. Jennings Subjective: Course reviewed with nursing staff Patient interviewed and examined All labs, imaging and other results reviewed The patient feeling better, states had multiple BM's (diarrhea), no c/o nausea or vomiting with NGT being clamped. Will d/c NGT, start clear liquids, plan on colonoscopy tomorrow. Normocytic normochromic anemia stable. PHYSICAL EXAMINATION: GENERAL: Malnourished, alert & oriented x 3, in no acute distress SKIN: No lesions, no stigmata chronic liver disease, no evidence of bleeding diathesis LYMPHATIC: No palpable lymphadenopathy. HEAD: Normocephalic, atraumatic, no tenderness. EYES: Pupils equal reactive to light and accommodation, full extraocular movements, sclera clear, non-icteric, no discharge. EARS/NOSE AND THROAT: Ears normal, nose normal, oropharynx normal, oral membranes well hydrated without lesions. NECK: Supple, no masses, thyroid normal, CHEST: Inspection within normal limits. CARDIOVASCULAR: Heart: Regular rate and rhythm, no murmurs, gallops or rubs. RESPIRATORY: Lungs clear to auscultation and percussion, no wheezing, no rubs GASTROINTESTINAL AND LIVER: Abdomen: Soft, tenderness, non-distended, no hernias , no masses, no organomegaly, no ascites, no guarding, no rebound tenderness, normoactive bowel sounds. Rectal: Deferred. GENITOURINARY: Female genitalia within normal limits. EXTREMITIES: No cyanosis, clubbing or edema. Problems: Exam/Review of Systems Vital Signs Vitals Vital Signs Date Time Temp Pulse Resp B/P Pulse Ox O2 Delivery O2 Flow Rate FiO2 03/06/17 07:37 98.5 78 16 103/62 99 03/04/17 08:14 Room Air Intake and Output 03/05/17 03/05/17 03/06/17 15:00 23:00 07:00 Intake Total 1126 ml 50 ml Output Total 1300 ml 700 ml Balance -174 ml -650 ml Results Result Diagram: 03/06/17 0444 03/06/17 0444 Results 24 hrs Laboratory Tests Test 03/06/17 04:44 White Blood Count 5.3 Red Blood Count 3.55 L Hemoglobin 10.4 L Hematocrit 31.3 L Mean Corpuscular Volume 88.2 Mean Corpuscular Hemoglobin 29.3 Mean Corpuscular Hemoglobin Concent 33.2 Red Cell Distribution Width 14.2 Platelet Count 321 Mean Platelet Volume 10.2 Neutrophils % 48.0 Segmented Neutrophils % (Manual) 49 Band Neutrophils % (Manual) 3 Lymphocytes % 37.3 Lymphocytes % (Manual) 26 Reactive Lymphocytes % (Manual) 6 H Monocytes % 9.4 Monocytes % (Manual) 10 Eosinophils % 4.7 Eosinophils % (Manual) 6 Basophils % 0.4 Nucleated Red Blood Cells % 1 H Neutrophils # 2.6 Neutrophils # (Manual) 2.6 Band Neutrophils # 0.1 Absolute Lymphocytes (Manual) 1.3 Lymphocytes # 2.0 Reactive Lymphocytes # 0.3 H Monocytes # 0.5 Absolute Monocytes (Manual) 0.5 Eosinophils # 0.3 Basophils # 0.0 Nucleated Red Blood Cells # 0.0 Platelet Estimate NORMAL Poikilocytosis 1+ Sodium Level 140 Potassium Level 3.7 Chloride Level 104 Carbon Dioxide Level 30 Anion Gap 10 Blood Urea Nitrogen < 2 L Creatinine 0.68 Glucose Level 104 Calcium Level 8.3 L Medications Medications Current Medications Ondansetron HCl (Zofran Inj) 4 mg Q6H PRN IV NAUSEA AND/OR VOMITING Last administered on 03/04/17 08:52; Admin Dose 4 MG; Start 03/03/17 at 03:30 Morphine Sulfate 2 mg 2 mg Q3 PRN IV PAIN Last administered on 03/06/17 11:08 ; Admin Dose 2 MG; Start 03/03/17 at 12:00 Potassium Chloride/Dextrose/ Sod Cl (D5-1/2ns + KCl 20 Meq) 1,000 ml @ 100 mls/ hr Q10H IV Last administered on 03/06/17 08:53; Admin Dose 100 MLS/HR; Start 03/04/17 at 16:30 Pantoprazole 40 mg 40 mg DAILY@06 IV Last administered on 03/06/17 05:19; Admin Dose 40 MG; Start 03/05/17 at 06:00 Ciprofloxacin/ Dextrose (Cipro Ivpb) 200 ml @ 200 mls/hr Q12 IVPB Last administered on 03/06/17 08:53; Admin Dose 200 MLS/HR; Start 03/05/17 at 15:00 BEE CEBALLOS Mar 06, 2017 11:30
[2017-03-06 14:30] VITALS: BP 98/58; RESP 18
--- NOTE | 2017-03-06 16:26 | PN ---
Date/Time of Note Date/Time of Note DATE: 03/06/17 TIME: 16:24 Assessment/Plan VTE Prophylaxis VTE Prophylaxis Intervention: SCD's Lines/Catheters IV C[facility] Type (from [facility]): Peripheral IV Urinary Cath still in place: No Assessment/Plan Chief Complaint/Hosp Course Assessment and plan 1. SBO. Patient did have imaging consistent with SBO. Recent imaging did show possibly resolving SBO. plan for colonoscopy per GI. NG tube to be discontinued today. Monitor tolerance for clear liquid diet 2. History of WPW. No active issues at this time. Will monitor. 3. History of hypertension. Stable at present. Will provide with antihypertensives as needed. 4. Recurrent UTI. Urine culture did show E. coli. Continue antibiotics for now. Disposition plan: Continue with antibiotics. Plan for colonoscopy tomorrow. NG tube discontinued. Advance diet as tolerated Discussed plan of care with Dr. Ochoa . Problems: Subjective 24 Hr Interval Summary Free Text/Dictation Less abdominal pain today. Reports having a bowel movement. Exam/Review of Systems Vital Signs Vitals Vital Signs Date Time Temp Pulse Resp B/P Pulse Ox O2 Delivery O2 Flow Rate FiO2 03/06/17 14:30 98.0 75 18 98/58 100 03/04/17 08:14 Room Air Intake and Output 03/05/17 03/05/17 03/06/17 15:00 23:00 07:00 Intake Total 1126 ml 50 ml Output Total 1300 ml 700 ml Balance -174 ml -650 ml Exam Constitutional: alert, oriented Psych: no complaints Head: normocephalic ENMT: nl external ears & nose Neck: non-tender, supple Respiratory: clear to auscultation, normal air movement Cardiovascular: regular rate and rhythm Gastrointestinal: other (Nasogastric tube in place), soft Neurological: TRUSS DESIGNER II-XII intact, nl mental status, nl speech Skin: nl turgor Results Result Diagram: 03/06/1744303/06/17443 Results 24 hrs Laboratory Tests Test 03/06/17 04:44 White Blood Count 5.3 Red Blood Count 3.55 L Hemoglobin 10.4 L Hematocrit 31.3 L Mean Corpuscular Volume 88.2 Mean Corpuscular Hemoglobin 29.3 Mean Corpuscular Hemoglobin Concent 33.2 Red Cell Distribution Width 14.2 Platelet Count 321 Mean Platelet Volume 10.2 Neutrophils % 48.0 Segmented Neutrophils % (Manual) 49 Band Neutrophils % (Manual) 3 Lymphocytes % 37.3 Lymphocytes % (Manual) 26 Reactive Lymphocytes % (Manual) 6 H Monocytes % 9.4 Monocytes % (Manual) 10 Eosinophils % 4.7 Eosinophils % (Manual) 6 Basophils % 0.4 Nucleated Red Blood Cells % 1 H Neutrophils # 2.6 Neutrophils # (Manual) 2.6 Band Neutrophils # 0.1 Absolute Lymphocytes (Manual) 1.3 Lymphocytes # 2.0 Reactive Lymphocytes # 0.3 H Monocytes # 0.5 Absolute Monocytes (Manual) 0.5 Eosinophils # 0.3 Basophils # 0.0 Nucleated Red Blood Cells # 0.0 Platelet Estimate NORMAL Poikilocytosis 1+ Sodium Level 140 Potassium Level 3.7 Chloride Level 104 Carbon Dioxide Level 30 Anion Gap 10 Blood Urea Nitrogen < 2 L Creatinine 0.68 Glucose Level 104 Calcium Level 8.3 L Medications Medications Current Medications Ondansetron HCl (Zofran Inj) 4 mg Q6H PRN IV NAUSEA AND/OR VOMITING Last administered on 03/04/17 08:52; Admin Dose 4 MG; Start 03/03/17 at 03:30 Morphine Sulfate 2 mg 2 mg Q3 PRN IV PAIN Last administered on 03/06/17 11:08 ; Admin Dose 2 MG; Start 03/03/17 at 12:00 Potassium Chloride/Dextrose/ Sod Cl (D5-1/2ns + KCl 20 Meq) 1,000 ml @ 100 mls/ hr Q10H IV Last administered on 03/06/17 08:53; Admin Dose 100 MLS/HR; Start 03/04/17 at 16:30 Pantoprazole 40 mg 40 mg DAILY@06 IV Last administered on 03/06/17 05:19; Admin Dose 40 MG; Start 03/05/17 at 06:00 Ciprofloxacin/ Dextrose (Cipro Ivpb) 200 ml @ 200 mls/hr Q12 IVPB Last administered on 03/06/17 08:53; Admin Dose 200 MLS/HR; Start 03/05/17 at 15:00 Magnesium Citrate (Citroma) 300 ml ONCE ONCE PO ; Start 03/06/17 at 17:30; Stop 03/06/17 at 17:31 Polyethylene Glycol (Miralax) 119 gm ONCE ONCE PO ; Start 03/06/17 at 18:30; Stop 03/06/17 at 18:31 ANU YAÑEZ Mar 06, 2017 16:26 ANU YAÑEZ Mar 06, 2017 16:26
--- NOTE | 2017-03-06 16:29 | PN ---
Date/Time of Note Date/Time of Note DATE: 03/06/17 TIME: 16:21 Assessment/Plan Lines/Catheters IV Catheter Type (from [facility]): Peripheral IV Lorenz in Place (from [facility]): No Assessment/Plan Chief Complaint/Hosp Course 1. ?SBO: reports having bm this morning; SBFT with partial obstruction, now with diarrhea s/p sbft; repeat imaging shows no obstruction -no surgical intervention necessary at this time 2. Abdominal pain: / #1 vs. gastroenteritis vs. IBD vs. other: -recommend GI consult -?scope per gi 3. Normocytic normochromic anemia: -monitor -transfuse as needed 4. Electrolyte imbalance -optimize lytes 5. UTI: -abx per sensitivity -frequent bladder emptying/cath care 6. Hypertension -medical management-bp optimization 7. Cachexia with likely malnutrition -recommend nutrition consult Thank you. Patient seen and examined in collaboration with Dr. Cheko Matson. Problems: Subjective 24 Hr Interval Summary Feels well. Diarrhea x1. Tolerating clear liquids. Bloating. No fevers, chills, sob, congested cough, cp, palpitations, bacon, dizziness, n/v/d/dysuria. Exam/Review of Systems Vital Signs Vitals Vital Signs Date Time Temp Pulse Resp B/P Pulse Ox O2 Delivery O2 Flow Rate FiO2 03/06/17 14:30 98.0 75 18 98/58 100 03/04/17 08:14 Room Air Intake and Output 03/05/17 03/05/17 03/06/17 15:00 23:00 07:00 Intake Total 1126 ml 50 ml Output Total 1300 ml 700 ml Balance -174 ml -650 ml Exam Free Text/Dictation Constitutional: alert, frail, oriented Psych: anxiety Head: atraumatic, normocephalic Eyes: nl lids, nl sclera ENMT: nl nasal mucosa & septum No mucosa pink and moist (dry) Neck: non-tender, supple Respiratory: normal air movement, No labored breathing Cardiovascular: nl pulses, regular rate and rhythm Gastrointestinal: soft, tender (left lower abdomen) Genitourinary - Female: nl adnexae, nl external genitalia Musculoskeletal: nl extremities to inspection, nl gait and stance Extremities: normal pulses Neurological: nl mental status, nl speech, nl strength Skin: nl turgor, rash or lesions Lymph: nl lymph nodes Results Result Diagram: 03/06/17 0444 03/06/17 0444 MAGDALENA DOHERTY NP Mar 06, 2017 16:29
[2017-03-06] MEDS ORDERED: MAGNESIUM CITRATE 300 ML BTL PO ONE (17:30)
[2017-03-06] MEDS ORDERED: POLYETHYLENE GLYCOL 3350 119 GM POWDER PO ONE (18:30)
[2017-03-06 19:40] VITALS: BP 105/66; RESP 18
[2017-03-07] VITALS (13 sets, daily range): BP systolic 89–100; BP diastolic 50–71; PULSE 58–84; RESP 16–22
[2017-03-07] MEDS: D5W-0.45 NACL + KCL 20 MEQ 1,000 ML IV SCH ×2 (04:53→14:59)
[2017-03-07 05:18] LABS: HEMATOCRIT 33.5 % (37.0-47.0); HEMOGLOBIN 10.9 g/dl (12.0-16.0); MEAN CORPUSCULAR HEMOGLOBIN 28.8 pg (29.0-33.0); MEAN CORPUSCULAR HGB CONC 32.5 g/dl (32.0-37.0); MEAN CORPUSCULAR VOLUME 88.6 fl (82.0-101.0); MEAN PLATELET VOLUME 10.8 fl (7.4-10.4); PLATELET COUNT 347 10^3/UL (140-415); RED BLOOD COUNT 3.78 10^6/ul (4.20-5.40); RED CELL DISTRIBUTION WIDTH 14.2 % (11.5-14.5); WHITE BLOOD COUNT 5.4 10^3/ul (4.8-10.8)
[2017-03-07 05:22] LABS: POSITIVE DIFF @See below
[2017-03-07 05:47] LABS: ANION GAP 12 (8-16); CALCIUM 8.9 mg/dl (8.4-10.2); CARBON DIOXIDE 29 mmol/L (21-31); CHLORIDE 104 mmol/L (97-110); CREATININE 0.67 mg/dl (0.44-1.00); GLUCOSE 116 mg/dl (70-220); SODIUM 141 mmol/L (135-144)
[2017-03-07 05:48] LABS: BLOOD UREA NITROGEN < 2 mg/dl (7-20)
[2017-03-07] MEDS ORDERED: POLYETHYLENE GLYCOL 3350 119 GM POWDER PO ONE (06:00)
[2017-03-07] MEDS: PANTOPRAZOLE 40 MG INJ IV SCH (06:16)
[2017-03-07] MEDS ORDERED: BISACODYL (EC) 5 MG TAB PO ONE (08:00)
[2017-03-07 09:18] LABS: BASOPHILS % (M) 1 % (0-2); EOSINOPHILS % (M) 2 % (0-7); GIANT THROMBO% (M) 1 % (0-0); MONOCYTES % (M) 4 % (0-11); PLATELET ESTIMATE NORMAL; POLYCHROMASIA 1+ (0-0); REACTIVE LYMPHOCYTES% (M) 4 % (0-0)
[2017-03-07] MEDS: CIPROFLOXACIN 400MG/D5W 200 ML IVPB SCH ×2 (09:29→20:52)
[2017-03-07] MEDS: morphine 2 MG INJ IV PRN (09:29)
--- NOTE | 2017-03-07 10:51 | PN ---
Date/Time of Note Date/Time of Note DATE: 03/07/17 TIME: 10:38 Assessment/Plan Lines/Catheters IV Catheter Type (from [facility]): Peripheral IV Lorenz in Place (from [facility]): No Assessment/Plan Chief Complaint/Hosp Course 1. ?SBO: reports having bm this morning; SBFT with partial obstruction, now with diarrhea s/p sbft; repeat imaging shows no obstruction -no surgical intervention necessary at this time 2. Abdominal pain: / #1 vs. gastroenteritis vs. IBD vs. other: -recommend GI consult -?scope per gi 3. Normocytic normochromic anemia: -monitor -transfuse as needed 4. Electrolyte imbalance -optimize lytes 5. UTI: -abx per sensitivity -frequent bladder emptying/cath care 6. Hypertension -medical management-bp optimization 7. Cachexia with likely malnutrition -recommend nutrition consult Thank you. Patient seen and examined in collaboration with Dr. Cheko Matson. Problems: Subjective 24 Hr Interval Summary Bowel prep ongoing. Pending colonoscopy today. +bowel function. No fevers, chills, sob, congested cough, cp, palpitations, bacon, dizziness, n/v/d/dysuria. Exam/Review of Systems Vital Signs Vitals Vital Signs Date Time Temp Pulse Resp B/P Pulse Ox O2 Delivery O2 Flow Rate FiO2 03/07/17 08:04 97.7 58 16 94/50 100 03/04/17 08:14 Room Air Intake and Output 03/06/17 03/06/17 03/07/17 15:00 23:00 07:00 Intake Total 1200 ml 1300 ml 1400 ml Output Total 1200 ml Balance 1200 ml 100 ml 1400 ml Exam Free Text/Dictation Constitutional: alert, frail, oriented Psych: anxiety Head: atraumatic, normocephalic Eyes: nl lids, nl sclera ENMT: nl nasal mucosa & septum No mucosa pink and moist (dry) Neck: non-tender, supple Respiratory: normal air movement, No labored breathing Cardiovascular: nl pulses, regular rate and rhythm Gastrointestinal: soft, tender (left lower abdomen), distended Genitourinary - Female: nl adnexae, nl external genitalia Musculoskeletal: nl extremities to inspection, nl gait and stance Extremities: normal pulses Neurological: nl mental status, nl speech, nl strength Skin: nl turgor, rash or lesions Lymph: nl lymph nodes Results Result Diagram: 03/07/17 0424 03/07/17 0424 MAGDALENA DOHERTY NP Mar 07, 2017 10:50
--- NOTE | 2017-03-07 10:54 | PN ---
Date/Time of Note Date/Time of Note DATE: 03/07/17 TIME: 10:47 Assessment/Plan VTE Prophylaxis VTE Prophylaxis Intervention: SCD's Lines/Catheters IV Catheter Type ([facility]): Peripheral IV Urinary Cath still in place: No Assessment/Plan Chief Complaint/Hosp Course Assessment and plan 1. SBO. Patient did have imaging consistent with SBO. Recent imaging did show possibly resolving SBO. plan for colonoscopy per GI. NG tube to be discontinued today. Monitor tolerance for clear liquid diet 2. History of old WPW. No active issues at this time. Will monitor. 3. History of hypertension. Stable at present. Will provide with antihypertensives as needed. 4. Recurrent UTI. Urine culture did show E. coli. Continue antibiotics for now. Disposition plan: less abd pain today. tolerating liquids well. advance diet per GI. plan for colonoscopy today Discussed plan of care with Dr. Fischer . Problems: Subjective 24 Hr Interval Summary Free Text/Dictation no s/s of distress Exam/Review of Systems Vital Signs Vitals Vital Signs Date Time Temp Pulse Resp B/P Pulse Ox O2 Delivery O2 Flow Rate FiO2 03/07/17 08:04 97.7 58 16 94/50 100 03/04/17 08:14 Room Air Intake and Output 03/06/17 03/06/17 03/07/17 15:00 23:00 07:00 Intake Total 1200 ml 1300 ml 1400 ml Output Total 1200 ml Balance 1200 ml 100 ml 1400 ml Exam Constitutional: alert, oriented Psych: no complaints Head: normocephalic ENMT: nl external ears & nose Neck: non-tender, supple Respiratory: clear to auscultation, normal air movement Cardiovascular: regular rate and rhythm Gastrointestinal: other (Nasogastric tube in place), soft Neurological: REGION MANAGER II-XII intact, nl mental status, nl speech Skin: nl turgor Results Result Diagram: 03/07/1742303/07/17423 Results 24 hrs Laboratory Tests Test 03/07/17 04:24 White Blood Count 5.4 Red Blood Count 3.78 L Hemoglobin 10.9 L Hematocrit 33.5 L Mean Corpuscular Volume 88.6 Mean Corpuscular Hemoglobin 28.8 L Mean Corpuscular Hemoglobin Concent 32.5 Red Cell Distribution Width 14.2 Platelet Count 347 Mean Platelet Volume 10.8 H Neutrophils % Segmented Neutrophils % (Manual) 53 Band Neutrophils % (Manual) 3 Lymphocytes % Lymphocytes % (Manual) 33 Reactive Lymphocytes % (Manual) 4 H Monocytes % Monocytes % (Manual) 4 Eosinophils % Eosinophils % (Manual) 2 Basophils % Basophils % (Manual) 1 Nucleated Red Blood Cells % 0.0 Neutrophils # Neutrophils # (Manual) 2.9 Band Neutrophils # 0.1 Absolute Lymphocytes (Manual) 1.7 Lymphocytes # Reactive Lymphocytes # 0.2 H Monocytes # Absolute Monocytes (Manual) 0.2 L Eosinophils # Basophils # Basophils # (Manual) 0.0 Nucleated Red Blood Cells # Platelet Estimate NORMAL Giant Platelets 1 H Polychromasia 1+ Sodium Level 141 Potassium Level 4.0 Chloride Level 104 Carbon Dioxide Level 29 Anion Gap 12 Blood Urea Nitrogen < 2 L Creatinine 0.67 Glucose Level 116 Calcium Level 8.9 Medications Medications Current Medications Ondansetron HCl (Zofran Inj) 4 mg Q6H PRN IV NAUSEA AND/OR VOMITING Last administered on 03/04/17 08:52; Admin Dose 4 MG; Start 03/03/17 at 03:30 Morphine Sulfate 2 mg 2 mg Q3 PRN IV PAIN Last administered on 03/07/17 09:29 ; Admin Dose 2 MG; Start 03/03/17 at 12:00 Potassium Chloride/Dextrose/ Sod Cl (D5-1/2ns + KCl 20 Meq) 1,000 ml @ 100 mls/ hr Q10H IV Last administered on 03/07/17 04:53; Admin Dose 100 MLS/HR; Start 03/04/17 at 16:30 Pantoprazole 40 mg 40 mg DAILY@06 IV Last administered on 03/07/17 06:16; Admin Dose 40 MG; Start 03/05/17 at 06:00 Ciprofloxacin/ Dextrose (Cipro Ivpb) 200 ml @ 200 mls/hr Q12 IVPB Last administered on 03/07/17 09:29; Admin Dose 200 MLS/HR; Start 03/05/17 at 15:00 ANU YAÑEZ Mar 07, 2017 10:54 ANU YAÑEZ Mar 07, 2017 10:54
--- NOTE | 2017-03-07 16:53 | HPN ---
Date/Time of Note Date/Time of Note DATE: 03/07/17 TIME: 16:53 Interval H&P Admission Note Pt. seen H&P reviewed: No system changes ESTELLA GUTIERREZ MD Mar 07, 2017 16:53
--- NOTE | 2017-03-07 17:31 | OPPN ---
Date/Time of Note Date/Time of Note DATE: 03/07/17 TIME: 17:27 Proc Note GI Procedure Date 03/07/17 Indication: other (Diarrhea) Pre-procedure Diagnosis Diarrhea Post-procedure Diagnosis Impression: Questionable mucosal thickening in the rectosigmoid area. Biopsies obtained Rule out proctitis Otherwise normal colonic mucosa. Random biopsies obtained right and left side: Slightly atrophic or flattened appearance of the terminal ileum. Random biopsies obtained Moderate-sized internal hemorrhoids. Plan: Review pathology Advance diet as tolerated Screening colonoscopy age 52 Procedure Performed: Colonoscopy (With biopsies. Enteroscopy with biopsies) Surgeon ESTELLA GUTIERREZ MD See signature line Steward/Stewardess Dining Room none Anesthesia Type: MAC Anesthesiologist: EDWARD SAUCEDA MD Tourniquet Time none EBL none Transfusion required none Biopsy 1: Sigmoid Biopsy 2: Terminal ileum Biopsy 3: Right colon, left colon Additional Biopsy: Rectum Grafts/Implants none Tubes/Drains none Complication(s) none Procedure Description After informed consent, with the patient/relatives understanding the procedure, its indications and potential risks and complications, including but not limited to: Allergic reaction, bleeding, perforation, infection, and after all pertinent questions were answered to the patient's satisfaction, the patient/ relatives signed the witnessed informed consent. Following this, premedication was administered slowly IV push under careful cardiovascular and respiratory monitoring with pulse OXIMETRY, automatic blood pressure, and strike operations officer. Once the sedative effect was achieved, the patient was placed in the left lateral decubitus position, digital rectal examination was performed. The colonoscope was then introduced and advanced under visual control throughout all segments of the colon including: the rectum, sigmoid, descending colon, splenic flexure, transverse colon, hepatic flexure, ascending colon and finally reaching the cecum which was clearly identified by transillumination, finger indentation and the ileocecal valve. The terminal ileum was entered and examined. Careful examination of the mucosa of the lower gastrointestinal tract both on insertion as well as withdrawal of the instrument disclosed the following findings: PREPARATION QUALITY: [Adequate], RECTAL EXAM: The anorectal area was visualized examined and digital rectal examination performed with the following findings: No evidence of perirectal disease, no masses. COLONIC MUCOSA: The mucosa of all segments of the colon and terminal ileum was carefully examined and showed the following findings: There is thickening possible and edema of the mucosa of the rectosigmoid. Biopsies were obtained. The remainder of the colon mucosa is unremarkable. Random biopsies were obtained of the right and left side of the colon. The terminal ileum was examined and appears slightly atrophic were flattened. Random biopsies were obtained. Otherwise the examined mucosa appears within normal limits. There is no evidence of inflammatory changes, diverticular formation, polyps or neoplasms, vascular malformation, or any other abnormality. The instrument was then withdrawn, the patient tolerated the procedure well and was transferred out of the Endoscopy Suite awake and in good condition to continue recovery under observation. Copies To: CC: ESTELLA GUTIERREZ MD, MORDO MD Mar 07, 2017 17:31
[2017-03-08] MEDS: D5W-0.45 NACL + KCL 20 MEQ 1,000 ML IV SCH ×3 (00:30→10:30)
[2017-03-08 02:35] VITALS: BP 91/50; RESP 18
[2017-03-08 05:02] LABS: BASOPHILS % 0.4 % (0.0-2.0); EOSINOPHILS # 0.2 10^3/ul (0.0-0.5); EOSINOPHILS % 1.9 % (0.0-7.0); HEMOGLOBIN 10.1 g/dl (12.0-16.0); LYMPHOCYTES # 2.4 10^3/ul (0.8-2.9); LYMPHOCYTES % 28.7 % (15.0-51.0); MEAN CORPUSCULAR HGB CONC 32.6 g/dl (32.0-37.0); MEAN CORPUSCULAR VOLUME 89.1 fl (82.0-101.0); MEAN PLATELET VOLUME 10.4 fl (7.4-10.4); MONOCYTE # 0.4 10^3/ul (0.3-0.9); MONOCYTES % 4.4 % (0.0-11.0); NEUTROPHIL # 5.3 10^3/ul (1.6-7.5); NEUTROPHILS % 64.2 % (39.0-77.0); PLATELET COUNT 339 10^3/UL (140-415); RED BLOOD COUNT 3.48 10^6/ul (4.20-5.40); RED CELL DISTRIBUTION WIDTH 14.5 % (11.5-14.5); WHITE BLOOD COUNT 8.2 10^3/ul (4.8-10.8)
[2017-03-08] MEDS: PANTOPRAZOLE 40 MG INJ IV SCH (05:34)
[2017-03-08 05:35] LABS: ANION GAP 12 (8-16); CALCIUM 8.5 mg/dl (8.4-10.2); CARBON DIOXIDE 26 mmol/L (21-31); CHLORIDE 107 mmol/L (97-110); CREATININE 0.69 mg/dl (0.44-1.00); GLUCOSE 105 mg/dl (70-220); POTASSIUM 4.4 mmol/L (3.5-5.1); SODIUM 141 mmol/L (135-144)
[2017-03-08 05:37] LABS: BLOOD UREA NITROGEN < 2 mg/dl (7-20)
[2017-03-08 08:17] VITALS: BP 84/51; RESP 18
[2017-03-08] MEDS: CIPROFLOXACIN 400MG/D5W 200 ML IVPB SCH (08:36)
--- NOTE | 2017-03-08 10:32 | PN ---
Date/Time of Note Date/Time of Note DATE: 03/08/17 TIME: 10:28 Assessment/Plan Lines/Catheters IV Catheter Type (from [facility]): Peripheral IV Lorenz in Place (from [facility]): No Assessment/Plan Chief Complaint/Hosp Course 1. ?SBO: reports having bm this morning; SBFT with partial obstruction, now with diarrhea s/p sbft; repeat imaging shows no obstruction -no surgical intervention necessary at this time 2. Abdominal pain: / #1 vs. gastroenteritis vs. IBD vs. other: s/p colonoscopy with biopsies -per gi 3. Normocytic normochromic anemia: -monitor -transfuse as needed 4. Electrolyte imbalance -optimize lytes 5. UTI: -abx per sensitivity -frequent bladder emptying/cath care 6. Hypertension -medical management-bp optimization 7. Cachexia with likely malnutrition -recommend nutrition consult Thank you. Patient seen and examined in collaboration with Dr. Cheko Matson. Problems: Subjective 24 Hr Interval Summary Feels well. S/p colonoscopy. Bloating improved. +bowel function. No fevers, chills, sob, congested cough, cp, palpitations, bacon, dizziness, n/v/d/dysuria. Exam/Review of Systems Vital Signs Vitals Vital Signs Date Time Temp Pulse Resp B/P Pulse Ox O2 Delivery O2 Flow Rate FiO2 03/08/17 08:17 97.0 68 18 84/51 90 03/07/17 18:15 Room Air Intake and Output 03/07/17 03/07/17 03/08/17 15:00 23:00 07:00 Intake Total 1000 ml 720 ml 1250 ml Output Total 1400 ml 1150 ml Balance 1000 ml -680 ml 100 ml Exam Free Text/Dictation Constitutional: alert, frail, oriented Psych: anxiety Head: atraumatic, normocephalic Eyes: nl lids, nl sclera ENMT: nl nasal mucosa & septum No mucosa pink and moist (dry) Neck: non-tender, supple Respiratory: normal air movement, No labored breathing Cardiovascular: nl pulses, regular rate and rhythm Gastrointestinal: soft, tender (left lower abdomen), improved distention Genitourinary - Female: nl adnexae, nl external genitalia Musculoskeletal: nl extremities to inspection, nl gait and stance Extremities: normal pulses Neurological: nl mental status, nl speech, nl strength Skin: nl turgor, rash or lesions Lymph: nl lymph nodes Results Result Diagram: 03/08/17 0437 03/08/17 0437 MAGDALENA DOHERTY NP Mar 08, 2017 10:32
--- NOTE | 2017-03-08 10:42 | PN ---
Date/Time of Note Date/Time of Note DATE: 03/08/17 TIME: 10:39 Assessment/Plan VTE Prophylaxis VTE Prophylaxis Intervention: SCD's Lines/Catheters IV Catheter Type (from [facility]): Peripheral IV Urinary Cath still in place: No Assessment/Plan Chief Complaint/Hosp Course Summary Assessment and Plan: Assessment: Abdominal pain Colonoscopy 03/07/17 Impression: Questionable mucosal thickening in the rectosigmoid area. Biopsies obtained Rule out proctitis Otherwise normal colonic mucosa. Random biopsies obtained right and left side: Slightly atrophic or flattened appearance of the terminal ileum. Random biopsies obtained Moderate-sized internal hemorrhoids. SBO/resolving Normocytic normochromic anemia Recurrent UTI WPW- s/p ablation in her 20's Hypertension Dyslipidemia Cachexia Plan: Review pathology once available Screening colonoscopy age 52 Patient seen in collaboration with Dr. Jennings Subjective: Course reviewed with nursing staff Patient interviewed and examined All labs, imaging and other results reviewed The patient is doing well, tolerating diet without difficulty, no c/o nausea/ vomiting, having BM's without difficultly. Bx currently pending. ok to be d/c'd from GI point of view. Pt to f/u with GI in 2-4 weeks to review bx results PHYSICAL EXAMINATION: GENERAL: Malnourished, alert & oriented x 3, in no acute distress SKIN: No lesions, no stigmata chronic liver disease, no evidence of bleeding diathesis LYMPHATIC: No palpable lymphadenopathy. HEAD: Normocephalic, atraumatic, no tenderness. EYES: Pupils equal reactive to light and accommodation, full extraocular movements, sclera clear, non-icteric, no discharge. EARS/NOSE AND THROAT: Ears normal, nose normal, oropharynx normal, oral membranes well hydrated without lesions. NECK: Supple, no masses, thyroid normal, CHEST: Inspection within normal limits. CARDIOVASCULAR: Heart: Regular rate and rhythm, no murmurs, gallops or rubs. RESPIRATORY: Lungs clear to auscultation and percussion, no wheezing, no rubs GASTROINTESTINAL AND LIVER: Abdomen: Soft, tenderness, non-distended, no hernias , no masses, no organomegaly, no ascites, no guarding, no rebound tenderness, normoactive bowel sounds. Rectal: Deferred. GENITOURINARY: Female genitalia within normal limits. EXTREMITIES: No cyanosis, clubbing or edema. Problems: Exam/Review of Systems Vital Signs Vitals Vital Signs Date Time Temp Pulse Resp B/P Pulse Ox O2 Delivery O2 Flow Rate FiO2 03/08/17 08:17 97.0 68 18 84/51 90 03/07/17 18:15 Room Air Intake and Output 03/07/17 03/07/17 03/08/17 15:00 23:00 07:00 Intake Total 1000 ml 720 ml 1250 ml Output Total 1400 ml 1150 ml Balance 1000 ml -680 ml 100 ml Results Result Diagram: 03/08/1743603/08/17 043 Results 24 hrs Laboratory Tests Test 03/08/17 04:37 White Blood Count 8.2 # Red Blood Count 3.48 L Hemoglobin 10.1 L Hematocrit 31.0 L Mean Corpuscular Volume 89.1 Mean Corpuscular Hemoglobin 29.0 Mean Corpuscular Hemoglobin Concent 32.6 Red Cell Distribution Width 14.5 Platelet Count 339 Mean Platelet Volume 10.4 Neutrophils % 64.2 Lymphocytes % 28.7 Monocytes % 4.4 Eosinophils % 1.9 Basophils % 0.4 Nucleated Red Blood Cells % 0.0 Neutrophils # 5.3 Lymphocytes # 2.4 Monocytes # 0.4 Eosinophils # 0.2 Basophils # 0.0 Nucleated Red Blood Cells # 0.0 Sodium Level 141 Potassium Level 4.4 Chloride Level 107 Carbon Dioxide Level 26 Anion Gap 12 Blood Urea Nitrogen < 2 L Creatinine 0.69 Glucose Level 105 Calcium Level 8.5 Medications Medications Current Medications Ondansetron HCl (Zofran Inj) 4 mg Q6H PRN IV NAUSEA AND/OR VOMITING Last administered on 03/04/17 08:52; Admin Dose 4 MG; Start 03/03/17 at 03:30 Morphine Sulfate 2 mg 2 mg Q3 PRN IV PAIN Last administered on 03/07/17 09:29 ; Admin Dose 2 MG; Start 03/03/17 at 12:00 Potassium Chloride/Dextrose/ Sod Cl (D5-1/2ns + KCl 20 Meq) 1,000 ml @ 100 mls/ hr Q10H IV Last administered on 03/08/17 05:34; Admin Dose 100 MLS/HR; Start 03/04/17 at 16:30 Pantoprazole 40 mg 40 mg DAILY@06 IV Last administered on 03/08/17 05:34; Admin Dose 40 MG; Start 03/05/17 at 06:00 Ciprofloxacin/ Dextrose (Cipro Ivpb) 200 ml @ 200 mls/hr Q12 IVPB Last administered on 03/08/17t 08:36; Admin Dose 200 MLS/HR; Start 03/05/17 at 15:00 BEE CEBALLOS Mar 08, 2017 10:42
--- NOTE | 2017-03-08 10:54 | PDOCDIS ---
Discharge Instructions DIAGNOSIS Discharge Diagnosis Abdominal pain. CONDITION Patient Condition: Stable HOME CARE INSTRUCTIONS: Diet Instructions: Regular FOLLOW UP/APPOINTMENTS Follow-up Plan Graciela Jennings MD [facility] Office Address [id number] [place] [address] Office OTHER ORDERS: Other Orders: 1. Take a regular diet as tolerated 2. Resume activities as tolerated. 3. Follow-up with gastroenterology () in the next 4 weeks for reviewing the biopsy results. LEA WILSON NP Mar 08, 2017 10:54
[2017-03-08 11:00] VITALS: BP 97/58; RESP 18
--- NOTE | 2017-03-08 18:02 | DS ---
Date/Time of Note Date/Time of Note DATE: 03/08/17 TIME: 18:02 Discharge Summary Admission/Discharge Info Admit Date/Time Mar 03, 2017 at 02:43 Discharge Date/Time Mar 08, 2017 at 13:51 Discharge Diagnosis 1. Suspected partial small bowel obstruction versus ileus. Resolved. 2. Asymptomatic bacteriuria. 3. History of WPW syndrome. 4. History of hypertension. Off antihypertensives. Patient Condition: Stable Consults 1. Cheko Matson MD, General Surgery. 2. Graciela Jennings MD, Gastroenterology. Procedures CT Abdomen & Pelvis IMPRESSION: Contrast throughout the colon and rectum. Diffuse small bowel dilatation without mural thickening or nodularity. No mass visualized. Question resolving ileus or resolving small bowel obstruction. Procedure Date 03/07/17 Colonoscopy Indication: other (Diarrhea) Pre-procedure Diagnosis Diarrhea Post-procedure Diagnosis Impression: Questionable mucosal thickening in the rectosigmoid area. Biopsies obtained Rule out proctitis Otherwise normal colonic mucosa. Random biopsies obtained right and left side: Slightly atrophic or flattened appearance of the terminal ileum. Random biopsies obtained Moderate-sized internal hemorrhoids. Hx of Present Illness This is a 41-year-old female with past medical history of essential hypertension that is diet-controlled recurrent urinary tract infection and WPW syndrome who came to the emergency room with chief complaint of abdominal pain that has been going on for a 5 day period. The patient also had episodes of nonbloody, nonbilious vomiting. She eventually went to an outside facility where she was diagnosed with a small bowel obstruction. The patient was transferred to [facility] for insurance reasons. Hospital Course The patient was kept n.p.o. NG tube decompression was started. General surgery consult was obtained. No surgical intervention was recommended by surgery. The patient's repeat abdominal imaging showed resolution of underlying small bowel obstruction versus ileus. General surgery recommended gastroenterology evaluation for evaluating for other pathologies. The patient underwent a colonoscopy that revealed questionable mucosal thickening in the rectosigmoid area and rule out proctitis. Biopsies were obtained. The patient was started on clear liquid diet and the patient's diet was advanced to a regular consistency diet without any significant gastrointestinal symptoms. The patient was cleared for discharge for outpatient follow-up with gastroenterology for going over the biopsy results. The patient has underlying history of essential hypertension. However the patient's blood pressure remained stable, rather on the lower side during the hospital course. She was noticed to have normocytic, normochromic anemia. The patient's H&H remained stable. The patient had a stable hospital course. The patient is stable to be discharged home. The patient's urine culture showed positive E. coli. However, the patient's colony count was less than 10,000. Although the patient received some IV antibiotics during the hospital course, the patient will be discharged off antibiotics. Discharge Instructions 1. Take a regular diet as tolerated 2. Resume activities as tolerated. 3. Follow-up with gastroenterology () in the next 4 weeks for reviewing the biopsy results. The patient verbalized understanding of her discharge instructions. At this time I would like to thank all the consultants for seeing the patient, doing the necessary procedures, and providing clinical recommendations. Case discussed with Dr. Fischer. Home Meds Discontinued Reported Medications [None] No Conflict Check 10/06/12 Discontinued Scripts Phenazopyridine Hcl* (Pyridium*) 200 Mg Tab, 200 MG PO TID Y for URINARY PAIN, # 6 TAB Prov:LESLI,YOSELYN 01/20/17 Nitrofurantoin Monohyd Macrocr* (Macrobid*) 100 Mg Capsr, 100 MG PO BID for 7 Days, CAP Prov:LESLI,YOSELYN 01/20/17 Piperonyl Butoxide Technical (Lice Killing Shampoo) 118 Ml Shampoo, 118 ML TP ONCE, #1 Prov:HAL GUERRERO-Yosi 06/23/16 Phenazopyridine Hcl* (Pyridium*) 100 Mg Tab, 100 MG PO TID Y for URINARY PAIN, # 8 TAB Prov:HAL GUERRERO-C 06/23/16 Nitrofurantoin Monohyd Macrocr* (Macrobid*) 100 Mg Capsr, 100 MG PO BID for 7 Days, CAP Prov:HAL GUERRERO-C 06/23/16 Follow-up Plan Graciela Jennings MD Specialty Gastroenterology Office Address [address] [address] Office Primary Care Provider [facility] Time spent on discharge: > 30 minutes Pending Labs Name: KAREN SHIN Age/Sex: 41/F Attend Dr: PO SANTIAGO MD Acct: [id number] MR# : [id number] : 1975 Location: MS1 [id number] Admit: 03/03/17 Specimen: [id number] Status: Complete Misbah: 03/03/17-1039 Rcvd: 03/03-1103 Source: CLEAN [facility]UNG Sp Descrip: Procedure Result Microbiology URINE CULTURE Final Organism 1 ESCHERICHIA COLI COLONY COUNT <10,000 CFU/ml E COLI M.I.C. RX --------- --- AMPICILLIN <=2 S CEFAZOLIN S CEFOTAXIME S CIPROFLOXACIN <=0.25 S GENTAMICIN <=1 S LEVOFLOXACIN <=0.12 S NITROFURANTOIN <=16 S TOBRAMYCIN <=1 S TRIMETHOPRIM/SULFAMETHOXAZOLE <=20 S ................................................................................ ............ Flags: Critical Hi = *H Critical Lo = *L Microbiology Abnormal = * Abnormal Hi = H Abnormal Lo = L Blood Bank Abnormal = * Susceptability Flags: S = Sensitive R = Resistant I = Intermediate END OF REPORT Laboratory Tests Test 03/08/17 04:37 White Blood Count 8.210^3/ul (4.8-10.8) Red Blood Count 3.4810^6/ul (4.20-5.40) Hemoglobin 10.1g/dl (12.0-16.0) Hematocrit 31.0% (37.0-47.0) Mean Corpuscular Volume 89.1fl (82.0-101.0) Mean Corpuscular Hemoglobin 29.0pg (29.0-33.0) Mean Corpuscular Hemoglobin Concent 32.6g/dl (32.0-37.0) Red Cell Distribution Width 14.5% (11.5-14.5) Platelet Count 94526^3/UL (140-415) Mean Platelet Volume 10.4fl (7.4-10.4) Neutrophils % 64.2% (39.0-77.0) Lymphocytes % 28.7% (15.0-51.0) Monocytes % 4.4% (0.0-11.0) Eosinophils % 1.9% (0.0-7.0) Basophils % 0.4% (0.0-2.0) Nucleated Red Blood Cells % 0.0/100WBC (0.0-0.0) Neutrophils # 5.310^3/ul (1.6-7.5) Lymphocytes # 2.410^3/ul (0.8-2.9) Monocytes # 0.410^3/ul (0.3-0.9) Eosinophils # 0.210^3/ul (0.0-0.5) Basophils # 0.010^3/ul (0.0-0.1) Nucleated Red Blood Cells # 0.010^3/ul (0.0-0.0) Sodium Level 141mmol/L (135-144) Potassium Level 4.4mmol/L (3.5-5.1) Chloride Level 107mmol/L (97-110) Carbon Dioxide Level 26mmol/L (21-31) Anion Gap 12 (8-16) Blood Urea Nitrogen < 2mg/dl (7-20) Creatinine 0.69mg/dl (0.44-1.00) Glucose Level 105mg/dl (70-220) Calcium Level 8.5mg/dl (8.4-10.2) LEA WILSON NP Mar 08, 2017 18:02
== END 2017-03-08 13:51 | disposition home or self-care (01) | DRG 389 ==
LOC: MS1 03-03 02:43
PROVIDERS: ADMIT Internal Medicine; ATTEND Internal Medicine
PROC: 0DBG8ZX Excision of Left Large Intestine, Via Natural or Artificial Opening Endoscopic, Diagnostic (ICD-10-PCS; 2017-03-07)
PROC: 0DBB8ZX Excision of Ileum, Via Natural or Artificial Opening Endoscopic, Diagnostic (ICD-10-PCS; 2017-03-07)
PROC: 0DBF8ZX Excision of Right Large Intestine, Via Natural or Artificial Opening Endoscopic, Diagnostic (ICD-10-PCS; 2017-03-07)
PROC: 0DBN8ZX Excision of Sigmoid Colon, Via Natural or Artificial Opening Endoscopic, Diagnostic (ICD-10-PCS; principal; 2017-03-07 19:30)
DX: K56.609 Unspecified intestinal obstruction, unspecified as to partial versus complete obstruction (principal); E46 Unspecified protein-calorie malnutrition; R64 Cachexia; Z68.1 Body mass index [BMI] 19.9 or less, adult; K56.7 Ileus, unspecified; R82.71 Bacteriuria; I10 Essential (primary) hypertension; E78.5 Hyperlipidemia, unspecified; D64.9 Anemia, unspecified; Z59.0 Homelessness
CPT/HCPCS: 74000; 74176; 74250; 80048; 80053; 81001; 83735; 84100; 84703; 85025; 87086; 88305; C9113; J0696; J0744; J2270; J2405; J3475; J3480; J7042; Q9967

== ENCOUNTER 2018-07-23 18:31 | Emergency (ER) | payer OTHER ==
[~2018-07-23] VITALS: Ht 162.6 cm; Wt 52.1 kg
[2018-07-23 18:51] VITALS: Ht 162.6 cm; Wt 52.1 kg
[2018-07-23] MEDS ORDERED: NITR-58 PO (21:32)
--- NOTE | 2018-07-23 21:34 | ERD ---
ER Documentation Chief Complaint Chief Complaint dizziness, swelling extremities per pt; pt ambulates; steady gait. HPI Patient is a 43-year-old female with history of Nhfbd-Sxwesnfzj-Bcqyx which has been ablated who presents with dizziness. The patient said that she had bilateral hand and feet swelling for 1 month. She said it is better with sleeping and keeping her legs up over the past 3 days. She has had no pain. She had subjective fevers. Upon review of old medical records this is the patient's seventh visit to the ER since 2012. She does not remember the name of her primary doctor. ROS All systems reviewed and are negative except as per history of present illness. Medications Home Meds Active Scripts Nitrofurantoin Monohyd Macrocr* (Macrobid*) 100 Mg Capsr, 100 MG PO BID for 7 Days, CAP Prov:DEBORAH CALDERÓN MD 07/23/18 Allergies Allergies: Coded Allergies: No Known Allergy (Unverified , 05/09/12) PMhx/Soc History of Surgery: Yes (heart surgery, left elbow surgery) Anesthesia Reaction: No Hx Neurological Disorder: No Hx Respiratory Disorders: No Hx Cardiac Disorders: Yes (htn, hyperlipidemia) Hx Psychiatric Problems: No (ANXIETY ATTACKS) Hx Miscellaneous Medical Probl: No Hx Alcohol Use: No Hx Substance Use: No Hx Tobacco Use: Yes Smoking Status: Current every day smoker FmHx Family History: No diabetes Physical Exam Vitals Vital Signs Date Temp Pulse Resp B/P (MAP) Pulse Ox O2 O2 Flow FiO2 Time Delivery Rate 07/23/18 86 18 103/75 100 Room Air 21:39 (84) 07/23/18 82 18 126/70 98 Room Air 19:35 (88) 07/23/18 98.6 83 18 133/65 100 18:51 (87) Physical Exam Const: No acute distress Head: Atraumatic Eyes: Normal Conjunctiva ENT: Normal External Ears, Nose and Mouth. Neck: Full range of motion. No meningismus. Resp: Clear to auscultation bilaterally Cardio: Regular rate and rhythm, no murmurs Abd: Soft, non tender, non distended. Normal bowel sounds Skin: No petechiae or rashes Back: No midline or flank tenderness Ext: No cyanosis, or edema but no swelling appreciated in the hands or feet Neur: Awake and alert Psych: Normal Mood and Affect Result Diagram: 07/23/18193207/23/181925 Results 24 hrs Laboratory Tests Test 07/23/18 19:26 07/23/18 19:33 Urine Color YELLOW Urine Clarity SLIGHTLY CLOUDY Urine pH 6.0 Urine Specific [place] 1.010 Urine Ketones TRACE mg/dL Urine Nitrite POSITIVE mg/dL Urine Bilirubin NEGATIVE mg/dL Urine Urobilinogen 2+ mg/dL Urine Leukocyte Esterase NEGATIVE Ingris/ul Urine Microscopic RBC 4 /HPF Urine Microscopic WBC 1 /HPF Urine Bacteria MANY /HPF Urine Hemoglobin 3+ mg/dL Urine Glucose NEGATIVE mg/dL Urine Total Protein NEGATIVE mg/dl Sodium Level 143 mmol/L Potassium Level 3.7 mmol/L Chloride Level 105 mmol/L Carbon Dioxide Level 28 mmol/L Anion Gap 10 Blood Urea Nitrogen 8 mg/dl Creatinine 0.77 mg/dl Est Glomerular Filtrat Rate mL/min > 60 mL/min Glucose Level 73 mg/dl Calcium Level 9.5 mg/dl Total Bilirubin 0.4 mg/dl Direct Bilirubin 0.00 mg/dl Indirect Bilirubin 0.4 mg/dl Aspartate Amino Transf (AST/SGOT) 22 IU/L Alanine Aminotransferase (ALT/SGPT) 13 IU/L Alkaline Phosphatase 75 IU/L Total Protein 8.1 g/dl Albumin 4.6 g/dl Globulin 3.50 g/dl Albumin/Globulin Ratio 1.31 Lipase 96 U/L White Blood Count 9.6 10^3/ul Red Blood Count 4.91 10^6/ul Hemoglobin 13.9 g/dl Hematocrit 43.1 % Mean Corpuscular Volume 87.8 fl Mean Corpuscular Hemoglobin 28.3 pg Mean Corpuscular Hemoglobin Concent 32.3 g/dl Red Cell Distribution Width 14.6 % Platelet Count 319 10^3/UL Mean Platelet Volume 10.4 fl Immature Granulocytes % 0.200 % Neutrophils % 59.9 % Lymphocytes % 32.1 % Monocytes % 4.9 % Eosinophils % 2.4 % Basophils % 0.5 % Nucleated Red Blood Cells % 0.0 /100WBC Immature Granulocytes # 0.020 10^3/ul Neutrophils # 5.7 10^3/ul Lymphocytes # 3.1 10^3/ul Monocytes # 0.5 10^3/ul Eosinophils # 0.2 10^3/ul Basophils # 0.1 10^3/ul Nucleated Red Blood Cells # 0.0 10^3/ul Serum HCG, Qualitative NEGATIVE Procedures/MDM EKG read by me: Rate/Rhythm: Regular rate and rhythm at a rate of 86 Intervals: Normal Impression: No evidence of ischemia or arrhythmia Smoking Cessation Therapy: Pt. was lectured for greater than 3 minutes on the health risks of continued smoking and the benefits of cessation. Patient is a 43-year-old female presents with complaints of hand and feet swelling and dizziness. EKG shows no signs of acute ischemia or arrhythmia. Laboratory studies were normal. Urinalysis shows mild infection. The patient will be treated with Macrobid for 1 week course. The patient can return for any worsening symptoms. I do not believe she requires further work-up or admission of the hospital at this time. Departure Diagnosis: Primary Impression: Cystitis Additional Impression: Swelling Condition: Fair Patient Instructions: Cystitis, Peripheral Edema, Bilateral Additional Instructions: Call your primary care doctor TOMORROW for an appointment during the next 1 WEEK.Tell the receptionist secretary that you were referred from this facility.See the doctor sooner or return here if your condition worsens before your appointment time. DEBORAH CALDERÓN MD Jul 23, 2018 21:34
[2018-07-23 21:39] VITALS: BP 103/75; PULSE 86; RESP 18
== END 2018-07-23 19:45 | disposition home or self-care (01) ==
LOC: E/R 18:31
DX: N30.90 Cystitis, unspecified without hematuria (principal); M79.89 Other specified soft tissue disorders; I10 Essential (primary) hypertension; F17.210 Nicotine dependence, cigarettes, uncomplicated
CPT/HCPCS: 36415; 80053; 81001; 83690; 84703; 85025; 93005